=== PATIENT | male | born 1945 | race Caucasian/White ===

== ENCOUNTER 2021-12-30 09:47 | Inpatient (IN) | payer MEDICARE, OTHER ==
[~2021-12-30] VITALS: Ht 182.9 cm; Wt 72.2 kg
[2021-12-30] MEDS ORDERED: DIVA125C2 PO (10:20)
[2021-12-30] MEDS ORDERED: ACET325T9 PO (10:20)
[2021-12-30] MEDS ORDERED: MAGN400O7 PO (10:20)
[2021-12-30] MEDS ORDERED: TRAZ-120 PO (10:20)
[2021-12-30] MEDS ORDERED: MEMA10TA PO (10:20)
[2021-12-30] MEDS ORDERED: QUET200T4 PO (10:20)
[2021-12-30] MEDS ORDERED: DONE10TA7 PO (10:20)
[2021-12-30] MEDS ORDERED: LEVO25TA4 PO (10:20)
[2021-12-30] MEDS ORDERED: ASPI-889 PO (10:20)
[2021-12-30] MEDS ORDERED: METO25TA4 PO (10:20)
--- NOTE | 2021-12-30 10:30 | PHYS DOC ---
Past History Past Medical History: Constipation, Dementia, Hypothyroid Additional Past Medical Histor: Alzheimer's, benign intracranial hypertension, General Adult EDM: Chief Complaint: MEDICAL CLEARANCE HPI: HPI: Patient is a 76-year-old male who presents to the emergency department from the retirement where he was recently admitted for medical clearance for psychiatric treatment. Patient has been admitted to the senior psychiatric unit at this facility. jail reported that the patient has been aggressive and angry towards staff grabbing, hitting, and kicking staff. HPI is limited due to patient's current mental status, he is non-verbal at this time. Review of Systems: Review of Systems: Complete ROS is negative unless otherwise documented in the HPI Allergies: Allergies: Allergies Coded Allergies Type Severity Reaction Last Updated Verified No Known Drug Allergies 12/30/21 No Physical Exam: PE: Constitutional: Well developed, well nourished, no acute distress, non-toxic appearance. [] HENT: Normocephalic, atraumatic, bilateral external ears normal, oropharynx moist, no oral exudates, nose normal. [] Eyes: PERRLA, EOMI, conjunctiva normal, no discharge. [] Neck: Normal range of motion, no tenderness, supple, no stridor. [] Cardiovascular:Heart rate regular rhythm, no murmur [] Lungs & Thorax: Bilateral breath sounds clear to auscultation [] Abdomen: soft, no tenderness, no masses, no pulsatile masses. [] Skin: Warm, dry, no erythema, no rash. [] Back: No tenderness Extremities: No tenderness, no cyanosis, no clubbing, ROM intact, no edema. [] Neurologic: Alert and oriented X 1, normal motor function, normal sensory function, hx of dementia Psychologic: Affect flat, judgement impaired, mood normal EKG: EK-SR rate 87, normal, no STEMI read by Dr. Baptiste[] Radiology/Procedures: Radiology/Procedures: [] Heart Score: C/O Chest Pain: No Course & Med Decision Making: Course & Med Decision Making Pertinent Labs and Imaging studies reviewed. (See chart for details) -year-old male sent to the emergency department for clearance for geriatric psych admission. CBC is unremarkable; CMP revealed a sodium 150, chloride of 113, glucose of 109, alk phos of 122, albumin of 3.3, otherwise unremarkable; UA is unremarkable, urine drug screen is negative for any abnormal findings, patient's alcohol, salicylate, and Tylenol levels are all negative; COVID PCR test is negative. EKG did not reveal any acute findings, the patient's TSH level is pending. At this time patient is medically cleared for psychiatric admission. We will discharge to be admitted. [] Dragon Disclaimer: Dragon Disclaimer: This electronic medical record was generated, in whole or in part, using a voice recognition dictation system. Departure Departure: Impression: Primary Impression: Medical clearance for psychiatric admission Disposition: HOME / SELF CARE / HOMELESS Condition: STABLE Referrals: PCP,UNKNOWN (PCP) Patient Instructions: Medical Screening Exam JOSEFA SAMSON ANIMAL PHYSIOLOGY TEACHER December 30, 2021 10:30
[2021-12-30 10:55] LABS: BASO # 0.1 x10^3/uL (0.0-0.2); BASO % 1 % (0-3); EOS # 0.4 x10^3/uL (0.0-0.7); EOS % 4 % (0-3); HEMATOCRIT 44.5 % (39.0-53.0); HEMOGLOBIN 14.9 g/dL (13.0-17.5); LYMPH # 1.6 x10^3/uL (1.0-4.8); LYMPH % 19 % (24-48); MEAN CORPUSCULAR HEMOGLOBIN 29 pg (25-35); MEAN CORPUSCULAR HGB CONC 34 g/dL (31-37); MEAN CORPUSCULAR VOLUME 85 fL (79-100); MONO # 0.8 x10^3/uL (0.0-1.1); MONO % 10 % (0-9); NEUT # 5.6 x10^3uL (1.8-7.7); NEUT % 67 % (31-73); PLATELET COUNT 245 x10^3/uL (140-400); RED BLOOD COUNT 5.22 x10^6/uL (4.30-5.70); RED CELL DISTRIBUTION WIDTH 14.5 % (11.5-14.5); WHITE BLOOD COUNT 8.5 x10^3/uL (4.0-11.0)
[2021-12-30 11:12] LABS: CALCIUM 8.6 mg/dL (8.5-10.1); CREATININE 1.2 mg/dL (0.7-1.3); GFR 58.6; POTASSIUM 3.6 mmol/L (3.5-5.1)
[2021-12-30 11:18] LABS: ALBUMIN 3.3 g/dL (3.4-5.0); ALBUMIN/GLOBULIN RATIO 0.8 (1.0-1.7); TOTAL BILIRUBIN 0.6 mg/dL (0.2-1.0); TOTAL PROTEIN 7.7 g/dL (6.4-8.2)
[2021-12-30 11:22] LABS: ACETAMIN < 2.0 mcg/mL (10-30); ETHANOL < 10 mg/dL (0-10); SALIC < 2.8 mg/dL (2.8-20.0)
[2021-12-30 12:35] LABS: BARBITURATES NEG (NEG); BENZODIAZEPINES NEG (NEG); CANNABINOIDS NEG (NEG); COCAINE NEG (NEG); METHADONE NEG (NEG); OPIATES NEG (NEG); PHENCYCLIDINE NEG (NEG)
[2021-12-30 12:41] LABS: AMPHETAMINE/METHAMPHETAMINE NEG (NEG)
[2021-12-30 12:51] LABS: COLOR,URINE AMBER
[2021-12-30 12:52] LABS: BACTERIA,URINE 0 /HPF (0-FEW); CLARITY,URINE CLEAR; GLUCOSE,URINE NEG (NEG); NITRITE,URINE NEG (NEG); RBC,URINE OCC /HPF (0-2); SQUAMOUS EPITHELIAL CELL,UR FEW /LPF; UROBILINOGEN,URINE 0.2 mg/dL (0.2 mg/dL); WBC,URINE OCC /HPF (0-4)
[2021-12-30 14:18] VITALS: BP 100/52
[2021-12-30] MEDS ORDERED: METHYL SALICYLATE/MENTHOL TOPICAL OINTMENT 57GM TUBE. TP PRN (14:30)
[2021-12-30] MEDS ORDERED: ACETAMINOPHEN 325 MG TABLET PO PRN (14:30)
[2021-12-30] MEDS ORDERED: MAGNESIUM HYDROXIDE 2,400 MG/30 ML ORAL.SUSP. PO PRN (14:30)
[2021-12-30] MEDS ORDERED: MAG HYDROX/AL HYDROX/SIMETH 30 ML ORAL.SUSP PO PRN (14:30)
[2021-12-30 15:23] LABS: MAGNESIUM 2.5 mg/dL (1.8-2.4)
[2021-12-30 15:26] LABS: VAL ACID 88 mcg/mL (50-100)
[2021-12-30 16:42] VITALS: BP 107/68
--- NOTE | 2021-12-30 19:03 | EKG ---
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
[2021-12-30] MEDS: DONEPEZIL HCL 10 MG TABLET PO SCH (20:16)
[2021-12-30] MEDS: QUEtiapine 100 MG TABLET. PO SCH (20:17)
[2021-12-30] MEDS: MEMANTINE 10 MG TABLET. PO SCH (20:17)
[2021-12-30] MEDS: traZODone 50 MG TABLET. PO SCH (20:17)
[2021-12-30] MEDS: METOPROLOL TART IMMED RELEASE 25 MG TABLET. PO SCH (20:17)
[2021-12-30] MEDS: DIVALPROEX 125 MG CAP.SPRINK PO SCH (20:18)
--- NOTE | 2021-12-30 21:46 | PDOC ---
Exam Note: Biju Note: Please also refer to the separate dictated note~for this date of service dictated separately.~Patient seen individually. Discussed the patient with Nursing staff reviewed the chart.~Reviewed interim history and current functioning. Reviewed vital signs,~Labs/ Radiology~and current medications noted below. Continue current treatment with the changes noted in the dictated addendum note Assessment: Vital Signs/I&O: Vital Signs Date Time Temp Pulse Resp B/P (MAP) Pulse Ox O2 Delivery O2 Flow Rate FiO2 12/30/21 20:17 85 107/68 12/30/21 16:42 98.0 18 92 12/30/21 10:54 Room Air Labs: Laboratory Tests Test 12/30/21 10:20 12/30/21 10:33 12/30/21 12:05 SARS-CoV-2 Antigen (Rapid) Negative (NEGATIVE) White Blood Count 8.5 x10^3/uL (4.0-11.0) Red Blood Count 5.22 x10^6/uL (4.30-5.70) Hemoglobin 14.9 g/dL (13.0-17.5) Hematocrit 44.5 % (39.0-53.0) Mean Corpuscular Volume 85 fL (79-100) Mean Corpuscular Hemoglobin 29 pg (25-35) Mean Corpuscular Hemoglobin Concent 34 g/dL (31-37) Red Cell Distribution Width 14.5 % (11.5-14.5) Platelet Count 245 x10^3/uL (140-400) Neutrophils (%) (Auto) 67 % (31-73) Lymphocytes (%) (Auto) 19 % (24-48) L Monocytes (%) (Auto) 10 % (0-9) H Eosinophils (%) (Auto) 4 % (0-3) H Basophils (%) (Auto) 1 % (0-3) Neutrophils # (Auto) 5.6 x10^3uL (1.8-7.7) Lymphocytes # (Auto) 1.6 x10^3/uL (1.0-4.8) Monocytes # (Auto) 0.8 x10^3/uL (0.0-1.1) Eosinophils # (Auto) 0.4 x10^3/uL (0.0-0.7) Basophils # (Auto) 0.1 x10^3/uL (0.0-0.2) Sodium Level 150 mmol/L (136-145) H Potassium Level 3.6 mmol/L (3.5-5.1) Chloride Level 113 mmol/L (98-107) H Carbon Dioxide Level 25 mmol/L (21-32) Anion Gap 12 (6-14) Blood Urea Nitrogen 24 mg/dL (8-26) Creatinine 1.2 mg/dL (0.7-1.3) Estimated GFR (Cockcroft-Gault) 58.6 BUN/Creatinine Ratio 20 (6-20) Glucose Level 109 mg/dL (70-99) H Calcium Level 8.6 mg/dL (8.5-10.1) Magnesium Level 2.5 mg/dL (1.8-2.4) H Total Bilirubin 0.6 mg/dL (0.2-1.0) Aspartate Amino Transferase (AST) 34 U/L (15-37) Alanine Aminotransferase (ALT) 49 U/L (16-63) Alkaline Phosphatase 122 U/L (46-116) H Total Protein 7.7 g/dL (6.4-8.2) Albumin 3.3 g/dL (3.4-5.0) L Albumin/Globulin Ratio 0.8 (1.0-1.7) L Salicylates Level < 2.8 mg/dL (2.8-20.0) L Salicylate Last Dose Date Unknown Salicylate Last Dose Time Unknown Acetaminophen Level < 2.0 mcg/mL (10-30) L Acetaminophen Last Dose Date Unknown Acetaminophen Last Dose Time Unknown Valproic Acid Level 88 mcg/mL (50-100) Valproic Acid Last Dose Date 12/30/2021 Valproic Acid Last Dose Time 0900 Ethyl Alcohol Level < 10 mg/dL (0-10) Urine Collection Type Clean catch Urine Color [place] Urine Clarity Clear Urine pH 6.0 Urine Specific [place] 1.025 Urine Protein 30 mg/dl (NEG-TRACE) Urine Glucose (UA) Neg mg/dL (NEG) Urine Ketones (Stick) 15 mg/dL (NEG) Urine Blood Neg (NEG) Urine Nitrite Neg (NEG) Urine Bilirubin Small (NEG) Urine Urobilinogen Dipstick 0.2 mg/dL (0.2 mg/dL) Urine Leukocyte Esterase Neg (NEG) Urine RBC Occ /HPF (0-2) Urine WBC Occ /HPF (0-4) Urine Squamous Epithelial Cells Few /LPF Urine Bacteria 0 /HPF (0-FEW) Urine Opiates Screen Neg (NEG) Urine Methadone Screen Neg (NEG) Urine Barbiturates Neg (NEG) Urine Phencyclidine Screen Neg (NEG) Urine Amphetamine/Methamphetamine Neg (NEG) Urine Benzodiazepines Screen Neg (NEG) Urine Cocaine Screen Neg (NEG) Urine Cannabinoids Screen Neg (NEG) Urine Ethyl Alcohol Neg (NEG) Current Medications: Meds: Laboratory Tests Test 12/30/21 10:20 12/30/21 10:33 12/30/21 12:05 SARS-CoV-2 Antigen (Rapid) Negative White Blood Count 8.5 x10^3/uL Red Blood Count 5.22 x10^6/uL Hemoglobin 14.9 g/dL Hematocrit 44.5 % Mean Corpuscular Volume 85 fL Mean Corpuscular Hemoglobin 29 pg Mean Corpuscular Hemoglobin Concent 34 g/dL Red Cell Distribution Width 14.5 % Platelet Count 245 x10^3/uL Neutrophils (%) (Auto) 67 % Lymphocytes (%) (Auto) 19 % Monocytes (%) (Auto) 10 % Eosinophils (%) (Auto) 4 % Basophils (%) (Auto) 1 % Neutrophils # (Auto) 5.6 x10^3uL Lymphocytes # (Auto) 1.6 x10^3/uL Monocytes # (Auto) 0.8 x10^3/uL Eosinophils # (Auto) 0.4 x10^3/uL Basophils # (Auto) 0.1 x10^3/uL Sodium Level 150 mmol/L Potassium Level 3.6 mmol/L Chloride Level 113 mmol/L Carbon Dioxide Level 25 mmol/L Anion Gap 12 Blood Urea Nitrogen 24 mg/dL Creatinine 1.2 mg/dL Estimated GFR (Cockcroft-Gault) 58.6 BUN/Creatinine Ratio 20 Glucose Level 109 mg/dL Calcium Level 8.6 mg/dL Magnesium Level 2.5 mg/dL Total Bilirubin 0.6 mg/dL Aspartate Amino Transf (AST/SGOT) 34 U/L Alanine Aminotransferase (ALT/SGPT) 49 U/L Alkaline Phosphatase 122 U/L Total Protein 7.7 g/dL Albumin 3.3 g/dL Albumin/Globulin Ratio 0.8 Salicylates Level < 2.8 mg/dL Salicylate Last Dose Date Unknown Salicylate Last Dose Time Unknown Acetaminophen Level < 2.0 mcg/mL Acetaminophen Last Dose Date Unknown Acetaminophen Last Dose Time Unknown Valproic Acid (Depakene) Level 88 mcg/mL Valproic Acid Last Dose Date 12/30/2021 Valproic Acid Last Dose Time 0900 Ethyl Alcohol Level < 10 mg/dL Urine Collection Type Clean catch Urine Color [place] Urine Clarity Clear Urine pH 6.0 Urine Specific [place] 1.025 Urine Protein 30 mg/dl Urine Glucose (UA) Neg mg/dL Urine Ketones (Stick) 15 mg/dL Urine Blood Neg Urine Nitrite Neg Urine Bilirubin Small Urine Urobilinogen Dipstick 0.2 mg/dL Urine Leukocyte Esterase Neg Urine RBC Occ /HPF Urine WBC Occ /HPF Urine Squamous Epithelial Cells Few /LPF Urine Bacteria 0 /HPF Urine Opiates Screen Neg Urine Methadone Screen Neg Urine Barbiturates Neg Urine Phencyclidine Screen Neg Urine Amphetamine/Methamphetamine Neg Urine Benzodiazepines Screen Neg Urine Cocaine Screen Neg Urine Cannabinoids Screen Neg Urine Ethyl Alcohol Neg Current Medications Medications (Trade) Dose Ordered Sig/Uche Route PRN Reason Start Time Stop Time Status Last Admin Dose Admin Acetaminophen (Tylenol) 325 mg PRN Q6HRS PRN PO MILD PAIN / TEMP > 100.3'F 12/30/21 14:30 Aspirin (Aspirin Enteric Coated) 81 mg DAILY PO 12/31/21 09:00 Divalproex Sodium (Depakote Sprinkles) 375 mg TID PO 12/30/21 21:00 12/30/21 20:18 Donepezil HCl (Aricept) 10 mg QHS PO 12/30/21 21:00 12/30/21 20:16 Levothyroxine Sodium (Synthroid) 25 mcg DAILY06 PO 12/31/21 06:00 Magnesium Hydroxide (Milk Of Magnesia) 400 mg PRN Q6HRS PRN PO CONSTIPATION 12/30/21 14:30 Memantine (Namenda) 10 mg BID PO 12/30/21 21:00 12/30/21 20:17 Metoprolol Tartrate (Lopressor) 12.5 mg BID PO 12/30/21 21:00 12/30/21 20:17 Trazodone HCl (Desyrel) 25 mg TID PO 12/30/21 21:00 12/30/21 20:17 Quetiapine Fumarate (SEROquel) 200 mg TID PO 12/30/21 21:00 12/30/21 20:17 Multi-Ingredient Ointment (Analgesic [place]) 1 char PRN QID PRN TP MUSCLE PAIN 12/30/21 14:30 Al Hydroxide/Mg Hydroxide (Mylanta Plus Xs) 15 ml PRN AFTMEALHC PRN PO DYSPEPSIA 12/30/21 14:30 Current Medications Medications (Trade) Dose Ordered Sig/Uche Route PRN Reason Start Time Stop Time Status Last Admin Dose Admin Divalproex Sodium (Depakote Sprinkles) 375 mg TID PO 12/30/21 21:00 12/30/21 20:18 Donepezil HCl (Aricept) 10 mg QHS PO 12/30/21 21:00 12/30/21 20:16 Memantine (Namenda) 10 mg BID PO 12/30/21 21:00 12/30/21 20:17 Metoprolol Tartrate (Lopressor) 12.5 mg BID PO 12/30/21 21:00 12/30/21 20:17 Trazodone HCl (Desyrel) 25 mg TID PO 12/30/21 21:00 12/30/21 20:17 Quetiapine Fumarate (SEROquel) 200 mg TID PO 12/30/21 21:00 12/30/21 20:17 I have reviewed the current psychotropics carefully including drug interactions. Risk benefit ratio favors no change other than as noted in my dictated progress note. SPENCER JUNIOR MD December 30, 2021 21:46
[2021-12-31 02:21] LABS: HEMOGLOBIN A1C 5.7 % (4.8-5.6)
[2021-12-31] MEDS: IV DEXTROSE 5% 1,000 ML IV SCH ×2 (03:15→15:41)
[2021-12-31] MEDS ORDERED: LEVOTHYROXINE 25 MCG TABLET. PO SCH (06:00)
[2021-12-31 06:18] VITALS: BP 118/79
[2021-12-31] MEDS: QUEtiapine 100 MG TABLET. PO SCH ×3 (09:41→21:00)
[2021-12-31] MEDS: METOPROLOL TART IMMED RELEASE 25 MG TABLET. PO SCH ×2 (09:41→21:00)
[2021-12-31] MEDS: traZODone 50 MG TABLET. PO SCH ×2 (09:41→12:46)
[2021-12-31] MEDS: MEMANTINE 10 MG TABLET. PO SCH ×2 (09:41→21:00)
[2021-12-31] MEDS: ASPIRIN ENTERIC COATED 81 MG TABLET.DR. PO SCH (09:42)
[2021-12-31] MEDS: DIVALPROEX 125 MG CAP.SPRINK PO SCH ×3 (09:42→21:00)
[2021-12-31 11:30] LABS: CHOLESTEROL/HDL RATIO 4.3
--- NOTE | 2021-12-31 11:54 | HP ---
DATE OF SERVICE: 12/31/2021 ADMIT DATE: 12/30/2021 PSYCHIATRY ADMISSION HISTORY/EVALUATION This is a late entry, date of service 12/30, covers elements not covered in my initial note 12/30. I met with the patient on the evening of 12/30, previously discussed with Deanna Moseley, sales planning coordinator and nursing staff and discussed with LLUVIA Khan on the evening of 12/30. IDENTIFYING DATA: The patient is a 76-year-old male referred to us from [facility] in [place], [place], a fpc, by his primary care physician on account of worsening dementia, vascular type, with delusion, behavioral disturbance, anxiety disorder and impulse control disorder. The patient was physically aggressive with staff at the fpc, refusing medications at times, wandering, attempting to grab female peers, exit seeking with increased agitation and having failed outpatient psychiatric interventions. His behaviors were unmanageable at the facility, resulting in this referral. CHIEF COMPLAINT: "No." HISTORY OF PRESENT ILLNESS: The patient has a history of dementia, probably Alzheimer's, vascular type. He has been increasingly paranoid, agitated with sleep and appetite changes, aggressive, disruptive, as noted above. No active suicidal or homicidal ideation. He has had worsening mood swings. PAST PSYCHIATRIC HISTORY: As above. MEDICAL HISTORY: Hypothyroidism, hypertension, chronic constipation, urinary retention, BPH. CODE STATUS: Full code. ALLERGIES: Negative. ACCU-CHEKS: Not applicable. DIET: Regular. Ambulates ad bassem, though he has had recent falls. FAMILY HISTORY: Noncontributory. SOCIAL HISTORY: No alcohol, drug abuse, physical, sexual, elder abuse history is noted. He is not known to be a perpetrator. REACTION TO HOSPITALIZATION: The patient oblivious of this. REVIEW OF SYSTEMS: No CV, , pulmonary, eye, ENT system symptoms on review. Reliability poor. MENTAL STATUS EXAM: The patient is oriented to himself. Insight, judgment, recent and remote memory, attention, concentration, fund of knowledge poor, consistent with his diagnosis. IMPRESSION: Major neurocognitive disorder, Alzheimer's, vascular with delusion, depression, behavioral disturbance, anxiety disorder, unspecified; impulse control disorder, unspecified. Rest as above. PLAN: Admit to Geropsychiatry Unit at [facility]. I will see the patient daily individually from a psychiatric standpoint. Medical followup, Dr. Epps/Dr. Sandoval. Continue the patient on his current psychotropics, trazodone 25 mg t.i.d., Depakote Sprinkles 375 mg t.i.d. Check CBC, CMP, valproic acid level. Aricept 10 mg at bedtime, Namenda 10 mg b.i.d., Seroquel 200 mg t.i.d. We will adjust psychotropics as clinically indicated. ESTIMATED LENGTH OF STAY: 10-12 days. DISPOSITION PLANS: Back to fpc when stable. Valproic acid level is 88 in the Emergency Department. The patient is quite sedated. MARVIN DR: Gail TID: [id number]
[2021-12-31 15:00] VITALS: BP 107/72
[2021-12-31] MEDS: DONEPEZIL HCL 10 MG TABLET PO SCH (21:00)
--- NOTE | 2022-01-01 02:38 | CONS ---
DATE OF CONSULTATION: 12/31/2021 REASON FOR CONSULTATION: Medical management. HISTORY OF PRESENT ILLNESS: The patient is a 71-year-old male patient who apparently was a resident at [facility]. From there, he was in [facility] where he was seen and admitted on account of being paranoid, suspicious, agitated, angry with a pressured speech, verbally abusive, hallucinating, delusional, yelling about shooting, conspiracies and another violent-type ideologies, all this in a background of schizophrenia and posttraumatic stress disorder. On questioning him, he denied any complaint. PAST MEDICAL HISTORY: Significant for hyperlipidemia, hypertension, gastroesophageal reflux disease, hyponatremia, type 2 diabetes, chronic back pain. PAST PSYCHIATRIC HISTORY: Significant for schizophrenia, posttraumatic stress disorder, alcohol dependence and insomnia. ALLERGIES: HE IS ALLERGIC TO WELLBUTRIN AND SIMVASTATIN. MEDICATIONS: He is currently on the following medications. He is on Lovenox 40 mg subcutaneous daily, pravastatin sodium 40 mg at bedtime, atenolol 50 mg once a day, amlodipine besylate 10 mg at bedtime, Tylenol 650 mg every 4 hours as needed, sertraline 100 mg daily, trazodone 25 mg every 8 hours, trazodone 25 mg at bedtime, olanzapine 2.5 mg at bedtime, quetiapine fumarate 50 mg twice a day, chlorhexidine gluconate 15 mL twice a day, cyanocobalamin 1000 mcg once a day, melatonin 10 mg at bedtime. FAMILY HISTORY: Noncontributory. SOCIAL HISTORY: He is a resident at [facility] and [facility]. He is , has no children of his own. REVIEW OF SYSTEMS: As per history of present illness. PHYSICAL EXAMINATION: GENERAL: When I examined him, he looked well and was clearly in no apparent respiratory distress. No pallor, jaundice, cyanosis or thyromegaly. No jugular venous distention. No lower limb edema. VITAL SIGNS: His heart rate was 94, blood pressure was 129/89, temperature 97.8, respiratory rate 20 and oxygen saturation was 91% on room air. HEAD, EYES, EARS, NOSE, AND THROAT: Showed he is normocephalic, atraumatic. NECK: Supple. HEART: Normal first and second heart sounds. No gallop, rub or murmur. CHEST: Clear to auscultation. No crepitation or rhonchi. ABDOMEN: Distended, soft, nontender. NEUROLOGIC: He was grossly intact. LABORATORY DATA: Showed a white cell count of 8.7, hemoglobin 15, hematocrit 45, MCV 93 and platelet count of 216,000 with normal manual differential. His chemistry showed serum sodium 142, potassium 4.4, chloride 105, bicarbonate 29, anion gap of 8, BUN 20, creatinine 1.1. Estimated GFR was 65 mL per minute. His glucose 102, calcium was 8.7, magnesium 2. Total bilirubin, AST, ALT, alkaline phosphatase were normal. Total protein 6.7, albumin 3.6. His D-dimer was slightly elevated at 1.05 mg per liter. His urinalysis essentially unremarkable. ASSESSMENT AND PLAN: In summary, this is a 76-year-old male patient who was admitted to [facility] on account of being paranoid, suspicious, agitated, angry with pressured speech. He was verbally abusive, hallucinating, delusional, yelling about shooting, conspiracy and an otherwise violent-type ideologies, all this in a background of schizophrenia and posttraumatic stress disorder. Of note, the patient has not so far demonstrated any of these behaviors in this facility. Medically, he has multiple medical problems including hypertension, hyperlipidemia, hyponatremia, type 2 diabetes mellitus, gastroesophageal reflux disease, chronic back pain. All in all, the patient seems to be medically stable. All his vital signs are stable. I reviewed all his lab works and they are all within acceptable range. I will continue with all his current medication; however, I do not think he needs Lovenox. I will discontinue that. He is ambulatory. Thank you, Dr. Latif, for allowing me to participate in the care of this patient. ODALYS/SCOTT RENNER: Marta TID: [id number]
[2022-01-01] MEDS: IV DEXTROSE 5% 1,000 ML IV SCH ×4 (03:15→23:58)
--- NOTE | 2022-01-01 03:53 | CONS ---
DATE OF CONSULTATION: 12/31/2021 REASON FOR CONSULTATION: Medical management. HISTORY OF PRESENT ILLNESS: The patient is a 76-year-old male patient, a resident at [facility] in [place], who was admitted through the Emergency Room of [facility] [place] to [facility] Unit on account of being physically aggressive with staff, refusing medication at times, wandering, attempted to grab a female peer, exit seeking, and increasingly agitated, all this in a background of major neurocognitive disorder, vascular, Alzheimer with delusion, depression, behavioral disturbances, anxiety disorder and unspecified impulse control disorder. The patient was heavily sedated and it was difficult to get any information from him. PAST MEDICAL HISTORY: Significant for hypertension, hypothyroidism, benign prostatic hypertrophy with urinary retention, chronic constipation. PAST SURGICAL HISTORY: Significant for Alzheimer disease as well as insomnia. FAMILY HISTORY: Unobtainable. SOCIAL HISTORY: He is apparently residing at [facility] in [place], no further information available in the records. ALLERGIES: He apparently is allergic to PENICILLIN, CODEINE, and SULFADIAZINE. MEDICATIONS: He is currently on the following medications: He is on Aricept 10 mg at bedtime, metoprolol tartrate 12.5 mg twice a day, aspirin 81 mg once a day, acetaminophen 650 mg every 6 hours, divalproex 375 mg 3 times a day, trazodone 25 mg 3 times a day, Seroquel 200 mg 3 times a day, Namenda 10 mg twice a day, and magnesium hydroxide 30 mL p.o. daily p.r.n. for constipation. He is also on levothyroxine 25 mcg once a day. REVIEW OF SYSTEMS: Unobtainable. PHYSICAL EXAMINATION: GENERAL: When I examined him, the patient was sitting slightly propped up in bed, in no apparent respiratory distress. There was no pallor, jaundice, cyanosis. No lymphadenopathy, no thyromegaly, no jugular venous distention. No lower limb edema. VITAL SIGNS: His heart rate was 94, blood pressure was 118/79, temperature was 98.2, respiratory rate 22, and oxygen saturation was 94% on room air. HEAD, EYES, EARS, NOSE, AND THROAT: Normocephalic, atraumatic. NECK: Supple. HEART: Showed normal first and second heart sounds. No gallop, rub or murmur. CHEST: Clear to auscultation, no crepitation or rhonchi. ABDOMEN: Distended, soft, nontender. NEUROLOGIC: He was lethargic, but arousable. He does not really open his eyes, but does respond to painful stimuli. There is no evidence of any neck rigidity, and Kernig sign was negative. LABORATORY DATA: On arrival showed a white cell count of 8.5, hemoglobin 15, hematocrit 45, MCV 85 and platelet count 245,000, with a manual differential showed 67% polymorphs, 19% lymphocytes, 10% monocytes. His chemistry showed his sodium to be high at 150, potassium 3.6, chloride 113, bicarbonate 25, anion gap of 12, BUN 24, creatinine 1.2. Estimated GFR was 58 mL per minute. His glucose 109, calcium was 8.6. Total bilirubin, AST, ALT were normal. Alkaline phosphatase slightly elevated. His total protein 7.7, albumin was 3.3. His TSH was 2.365. His hemoglobin A1c was 5.7, magnesium 2.5. Serum iron, TIBC and iron saturation are all consistent with replete iron stores. His serum triglycerides was 118, total cholesterol 178, LDL was 113, VLDL was 24, HDL was 41 and the ratio was 4.3. His total T4 and total T3 are both low. His urinalysis essentially unremarkable. Toxic screen was negative, and his coronavirus by rapid antigen testing and by PCR both were negative. ASSESSMENT AND PLAN: In summary, this is a 76-year-old male patient, a resident at [facility] in [place], who was admitted on account of being physically aggressive towards staff, refusing medication at times, wandering, attempted to grab a female peer, exit seeking with increased agitation, all this in a background of major neurocognitive disorder. Medically, the patient has multiple medical problems including hypertension, hypothyroidism, benign prostatic hypertrophy and chronic constipation as well as urinary retention. All in all, the patient seems to be medically stable. He has marked hyponatremia and marked water deficit as well as hypothyroidism. His total T4 and total T3 were normal. He probably needs need to increase his Synthroid to 50 mcg, start him also on D5W while he continues to be lethargic to treat his hyponatremia. Thank you, Dr. Latif, for allowing me to participate in the care of this patient. ODALYS/DEYVI DR: ODALYS/nts TID: [id number]
[2022-01-01] MEDS: LEVOTHYROXINE 50 MCG TABLET PO SCH ×2 (06:00→07:44)
[2022-01-01 06:09] VITALS: BP 103/66
[2022-01-01] MEDS: MEMANTINE 10 MG TABLET. PO SCH ×2 (07:44→08:11)
[2022-01-01] MEDS: ASPIRIN ENTERIC COATED 81 MG TABLET.DR. PO SCH ×2 (07:44→08:11)
[2022-01-01] MEDS: DIVALPROEX 125 MG CAP.SPRINK PO SCH ×4 (07:46→20:57)
[2022-01-01] MEDS: METOPROLOL TART IMMED RELEASE 25 MG TABLET. PO SCH ×3 (07:46→20:58)
[2022-01-01 08:28] LABS: CALCIUM 8.2 mg/dL (8.5-10.1); CREATININE 1.1 mg/dL (0.7-1.3); GFR 64.7; POTASSIUM 3.7 mmol/L (3.5-5.1)
[2022-01-01] MEDS: QUEtiapine 100 MG TABLET. PO SCH ×3 (09:00→20:58)
[2022-01-01 16:03] VITALS: BP 102/69
--- NOTE | 2022-01-01 21:55 | PDOC ---
Exam Note: Biju Note: Please also refer to the separate dictated note~for this date of service dictated separately.~Patient seen individually. Discussed the patient with Nursing staff reviewed the chart.~Reviewed interim history and current functioning. Reviewed vital signs,~Labs/ Radiology~and current medications noted below. Continue current treatment with the changes noted in the dictated addendum note Assessment: Vital Signs/I&O: Vital Signs Date Time Temp Pulse Resp B/P (MAP) Pulse Ox O2 Delivery O2 Flow Rate FiO2 01/01/22 16:03 97.4 71 18 102/69 (80) 98 Room Air I & O 12/31/21 12/31/21 01/01/22 15:00 23:00 07:00 Intake Total 240 ml 0 ml 1000 ml Balance 240 ml 0 ml 1000 ml Labs: Laboratory Tests Test 01/01/22 08:00 D-Dimer (Nafisa) 5.49 mg/L (0.00-0.50) H Sodium Level 147 mmol/L (136-145) H Potassium Level 3.7 mmol/L (3.5-5.1) Chloride Level 111 mmol/L (98-107) H Carbon Dioxide Level 29 mmol/L (21-32) Anion Gap 7 (6-14) Blood Urea Nitrogen 19 mg/dL (8-26) Creatinine 1.1 mg/dL (0.7-1.3) Estimated GFR (Cockcroft-Gault) 64.7 Glucose Level 109 mg/dL (70-99) H Calcium Level 8.2 mg/dL (8.5-10.1) L Current Medications: Meds: Laboratory Tests Test 01/01/22 08:00 D-Dimer (Nafisa) 5.49 mg/L Sodium Level 147 mmol/L Potassium Level 3.7 mmol/L Chloride Level 111 mmol/L Carbon Dioxide Level 29 mmol/L Anion Gap 7 Blood Urea Nitrogen 19 mg/dL Creatinine 1.1 mg/dL Estimated GFR (Cockcroft-Gault) 64.7 Glucose Level 109 mg/dL Calcium Level 8.2 mg/dL Current Medications Medications (Trade) Dose Ordered Sig/Uche Route PRN Reason Start Time Stop Time Status Last Admin Dose Admin Acetaminophen (Tylenol) 325 mg PRN Q6HRS PRN PO MILD PAIN / TEMP > 100.3'F 12/30/21 14:30 Aspirin (Aspirin Enteric Coated) 81 mg DAILY PO 5/7/22 09:00 12/31/21 09:42 Divalproex Sodium (Depakote Sprinkles) 375 mg TID PO 12/30/21 21:00 12/31/21 12:46 Donepezil HCl (Aricept) 10 mg QHS PO 12/30/21 21:00 01/01/22 20:43 DC 12/30/21 20:16 Levothyroxine Sodium (Synthroid) 25 mcg DAILY06 PO 12/31/21 06:00 12/31/21 11:54 DC 12/31/21 05:46 Magnesium Hydroxide (Milk Of Magnesia) 400 mg PRN Q6HRS PRN PO CONSTIPATION 12/30/21 14:30 12/31/21 12:46 Memantine (Namenda) 10 mg BID PO 12/30/21 21:00 01/01/22 20:43 DC 12/31/21 09:41 Metoprolol Tartrate (Lopressor) 12.5 mg BID PO 12/30/21 21:00 12/31/21 09:41 Trazodone HCl (Desyrel) 25 mg TID PO 12/30/21 21:00 12/31/21 17:59 DC 12/31/21 09:41 Quetiapine Fumarate (SEROquel) 200 mg TID PO 12/30/21 21:00 12/31/21 17:59 DC 12/31/21 09:41 Multi-Ingredient Ointment (Analgesic [place]) 1 char PRN QID PRN TP MUSCLE PAIN 12/30/21 14:30 Al Hydroxide/Mg Hydroxide (Mylanta Plus Xs) 15 ml PRN AFTMEALHC PRN PO DYSPEPSIA 12/30/21 14:30 Dextrose 1,000 ml @ 100 mls/hr Q10H IV 12/31/21 11:45 01/01/22 03:15 Levothyroxine Sodium (Synthroid) 50 mcg DAILY06 PO 01/01/22 06:00 Quetiapine Fumarate (SEROquel) 100 mg TID PO 12/31/21 21:00 Olanzapine (ZyPREXA ZYDIS) 2.5 mg PRN Q2HR PRN PO ANXIETY / AGITATION 12/31/21 18:00 I have reviewed the current psychotropics carefully including drug interactions. Risk benefit ratio favors no change other than as noted in my dictated progress note. 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
[2022-01-02] MEDS: LEVOTHYROXINE 50 MCG TABLET PO SCH (05:08)
[2022-01-02 06:04] VITALS: BP 102/68
[2022-01-02 07:24] LABS: CALCIUM 8.2 mg/dL (8.5-10.1); GFR 72.3; POTASSIUM 3.4 mmol/L (3.5-5.1)
[2022-01-02] MEDS: DIVALPROEX 125 MG CAP.SPRINK PO SCH (08:31)
[2022-01-02] MEDS: METOPROLOL TART IMMED RELEASE 25 MG TABLET. PO SCH ×3 (08:31→21:00)
[2022-01-02] MEDS: ASPIRIN ENTERIC COATED 81 MG TABLET.DR. PO SCH ×2 (08:31→09:15)
[2022-01-02] MEDS: QUEtiapine 100 MG TABLET. PO SCH (08:32)
--- NOTE | 2022-01-02 08:34 | PDOC ---
Exam Note: Biju Note: This note is a late entry for 12/31/2021 covers elements not covered in my initial note. Subjective: The patient was seen individually on 12/31/2021, discussed and reviewed the chart with Carolina TEIXEIRA. The patient slept 7-1/4 hours previous night. He remains confused. Apparently he got significant amount of Haldol at the [facility] prior to the transport here. He continues to keep his eyes closed. Appetite is very poor. He has been picking at staff, refusing to eat. Sodium is 150 and he was started on IV D5W. BMP will be repeated in the morning. Later in the day he was grabbing, hitting and kneeing with staff members. He takes his medications in apple sauce. He is quite dehydrated, was started on IV fluids, very difficult to keep the line in and he has pulled it out and staff are attempting to put it back in this evening. Review of Systems: Ambulation impaired. No CV, , pulmonary, eye, ENT system symptoms on review. Mental Status Exam: Patient is oriented to himself. Insight and judgment, recent and remote memory, attention and concentration, fund of knowledge is poor consistent with his diagnoses. Laboratory Data: Reviewed. Impression: Major neurocognitive disorder, Alzheimer, vascular with delusion, depression, behavioral disturbance. Anxiety disorder unspecified. Impulse control disorder unspecified. Dehydration and oversedation. Rest unchanged from admission note. Plan: Continue current psychotropics unchanged. Reviewed drug interactions, risk-benefit ratio. We will defer medical management to Dr. Epps. The patient is being restarted on IV fluids. Stop the trazodone 25 mg t.i.d. to reduce sedation and Seroquel from 400 mg t.i.d. down to 100 mg t.i.d. We will add Zyprexa 2.5 mg q.2h. p.r.n. psychosis and agitation, max 15 mg in 25 hours. Consider low dose Depakote as a mood stabilizer. Adjust further as clinically indicated. Assessment: Vital Signs/I&O: Vital Signs Date Time Temp Pulse Resp B/P (MAP) Pulse Ox O2 Delivery O2 Flow Rate FiO2 01/02/22 06:04 97.0 68 18 102/68 (79) 92 Room Air I & O 01/01/22 01/01/22 01/02/22 15:00 23:00 07:00 Intake Total 120 ml 1520 ml 1000 ml Balance 120 ml 1520 ml 1000 ml Labs: Laboratory Tests Test 01/02/22 07:03 Sodium Level 137 mmol/L (136-145) Potassium Level 3.4 mmol/L (3.5-5.1) L Chloride Level 103 mmol/L (98-107) Carbon Dioxide Level 27 mmol/L (21-32) Anion Gap 7 (6-14) Blood Urea Nitrogen 11 mg/dL (8-26) Creatinine 1.0 mg/dL (0.7-1.3) Estimated GFR (Cockcroft-Gault) 72.3 Glucose Level 108 mg/dL (70-99) H Calcium Level 8.2 mg/dL (8.5-10.1) L Current Medications: I have reviewed the current psychotropics carefully including drug interactions. Risk benefit ratio favors no change other than as noted in my dictated progress note. Diagnosis: Problems: (1) Dehydration (2) Impulse control disorder, unspecified (3) Anxiety disorder, unspecified (4) Dementia, vascular, with depression (5) Dementia, vascular, with delusions (6) Dementia in Alzheimer's disease with depression (7) Dementia in Alzheimer's disease with delusions (8) Mixed Alzheimer's and vascular dementia with behavior disturbances (9) Major neurocognitive disorder SPENCER JUNIOR MD January 02, 2022 08:34
--- NOTE | 2022-01-02 09:03 | PDOC ---
Exam Note: Biju Note: This note is a late entry for 01/01/2022 covers elements not covered in my initial note. Subjective: The patient was seen individually on 01/01/2022, discussed and reviewed the chart with Raquel TEIXEIRA. The patient slept 7 hours previous night. He had marked mood lability, was quite withdrawn due to his general mental status and psychotropic medication adjustment, other times he is beating up nursing staff when they assist him with ADLs and with his IV fluids. He did not get any h.s. meds last night, none today. He remains on D5W at 100 mL. He grabbed the arm of a nursing staff today and twisted it behind the staffs back. Repeat labs in the morning. He refused medications and then they had to be syringed at times. Review of Systems: Ambulation impaired, lying in bed. No CV, , pulmonary, eye, ENT system symptoms on review. Mental Status Exam: Patient is oriented to himself. He is not very verbally interactive. Insight and judgment, recent and remote memory, attention and concentration, fund of knowledge is poor consistent with his diagnoses. Laboratory Data: Reviewed. Impression: Major neurocognitive disorder, Alzheimer, vascular with delusion, depression, behavioral disturbance. Anxiety disorder unspecified. Impulse control disorder unspecified. Dehydration and oversedation. Plan: Continue current psychotropics unchanged. Reviewed drug interactions, risk-benefit ratio. Given the patients level of dementia, there will be little benefit from Aricept and Namenda and we will stop it. Maintain rest of the psychotropics unchanged Depakote, Seroquel and Zyprexa p.r.n. We will adjust further as clinically indicated. Assessment: Vital Signs/I&O: Vital Signs Date Time Temp Pulse Resp B/P (MAP) Pulse Ox O2 Delivery O2 Flow Rate FiO2 01/02/22 08:31 68 102/68 01/02/22 06:04 97.0 18 92 Room Air I & O 01/01/22 01/01/22 01/02/22 15:00 23:00 07:00 Intake Total 120 ml 1520 ml 1000 ml Balance 120 ml 1520 ml 1000 ml Labs: Laboratory Tests Test 01/02/22 07:03 Sodium Level 137 mmol/L (136-145) Potassium Level 3.4 mmol/L (3.5-5.1) L Chloride Level 103 mmol/L (98-107) Carbon Dioxide Level 27 mmol/L (21-32) Anion Gap 7 (6-14) Blood Urea Nitrogen 11 mg/dL (8-26) Creatinine 1.0 mg/dL (0.7-1.3) Estimated GFR (Cockcroft-Gault) 72.3 Glucose Level 108 mg/dL (70-99) H Calcium Level 8.2 mg/dL (8.5-10.1) L Current Medications: I have reviewed the current psychotropics carefully including drug interactions. Risk benefit ratio favors no change other than as noted in my dictated progress note. Diagnosis: Problems: (1) Impulse control disorder, unspecified (2) Anxiety disorder, unspecified (3) Dementia, vascular, with depression (4) Dementia, vascular, with delusions (5) Dementia in Alzheimer's disease with depression (6) Dementia in Alzheimer's disease with delusions (7) Mixed Alzheimer's and vascular dementia with behavior disturbances (8) Major neurocognitive disorder (9) Dehydration SPENCER JUNIOR MD January 02, 2022 09:03
[2022-01-02 16:12] VITALS: BP 137/75
--- NOTE | 2022-01-02 21:32 | PDOC ---
Exam Note: Biju Note: Please also refer to the separate dictated note~for this date of service dictated separately.~Patient seen individually. Discussed the patient with Nursing staff reviewed the chart.~Reviewed interim history and current functioning. Reviewed vital signs,~Labs/ Radiology~and current medications noted below. Continue current treatment with the changes noted in the dictated addendum note Assessment: Vital Signs/I&O: Vital Signs Date Time Temp Pulse Resp B/P (MAP) Pulse Ox O2 Delivery O2 Flow Rate FiO2 01/02/22 16:12 98.1 95 18 137/75 (95) 93 Room Air I & O 01/01/22 01/01/22 01/02/22 15:00 23:00 07:00 Intake Total 120 ml 1520 ml 1000 ml Balance 120 ml 1520 ml 1000 ml Labs: Laboratory Tests Test 01/02/22 07:03 01/02/22 09:00 01/02/22 09:38 Sodium Level 137 mmol/L (136-145) Potassium Level 3.4 mmol/L (3.5-5.1) L Chloride Level 103 mmol/L (98-107) Carbon Dioxide Level 27 mmol/L (21-32) Anion Gap 7 (6-14) Blood Urea Nitrogen 11 mg/dL (8-26) Creatinine 1.0 mg/dL (0.7-1.3) Estimated GFR (Cockcroft-Gault) 72.3 Glucose Level 108 mg/dL (70-99) H Calcium Level 8.2 mg/dL (8.5-10.1) L POC SARS CoV-2 Antigen Positive (NEGATIVE) A SARS-CoV-2 (PCR) Not detected (NOT DETECTD) Current Medications: Meds: Laboratory Tests Test 01/02/22 07:03 01/02/22 09:00 01/02/22 09:38 Sodium Level 137 mmol/L Potassium Level 3.4 mmol/L Chloride Level 103 mmol/L Carbon Dioxide Level 27 mmol/L Anion Gap 7 Blood Urea Nitrogen 11 mg/dL Creatinine 1.0 mg/dL Estimated GFR (Cockcroft-Gault) 72.3 Glucose Level 108 mg/dL Calcium Level 8.2 mg/dL POC SARS CoV-2 Antigen Positive Coronavirus (COVID-19)(PCR) Not detected Current Medications Medications (Trade) Dose Ordered Sig/Uche Route PRN Reason Start Time Stop Time Status Last Admin Dose Admin Acetaminophen (Tylenol) 325 mg PRN Q6HRS PRN PO MILD PAIN / TEMP > 100.3'F 12/30/21 14:30 Aspirin (Aspirin Enteric Coated) 81 mg DAILY PO 12/31/21 09:00 12/31/21 09:42 Divalproex Sodium (Depakote Sprinkles) 375 mg TID PO 12/30/21 21:00 01/02/22 13:09 DC 01/02/22 08:31 Donepezil HCl (Aricept) 10 mg QHS PO 12/30/21 21:00 01/01/22 20:43 DC 12/30/21 20:16 Levothyroxine Sodium (Synthroid) 25 mcg DAILY06 PO 12/31/21 06:00 12/31/21 11:54 DC 12/31/21 05:46 Magnesium Hydroxide (Milk Of Magnesia) 400 mg PRN Q6HRS PRN PO CONSTIPATION 12/30/21 14:30 12/31/21 12:46 Memantine (Namenda) 10 mg BID PO 12/30/21 21:00 01/01/22 20:43 DC 12/31/21 09:41 Metoprolol Tartrate (Lopressor) 12.5 mg BID PO 12/30/21 21:00 12/31/21 09:41 Trazodone HCl (Desyrel) 25 mg TID PO 12/30/21 21:00 12/31/21 17:59 DC 12/31/21 09:41 Quetiapine Fumarate (SEROquel) 200 mg TID PO 12/30/21 21:00 12/31/21 17:59 DC 12/31/21 09:41 Multi-Ingredient Ointment (Analgesic [place]) 1 char PRN QID PRN TP MUSCLE PAIN 12/30/21 14:30 Al Hydroxide/Mg Hydroxide (Mylanta Plus Xs) 15 ml PRN AFTMEALHC PRN PO DYSPEPSIA 12/30/21 14:30 Dextrose 1,000 ml @ 100 mls/hr Q10H IV 12/31/21 11:45 01/02/22 09:41 DC 01/01/22 23:58 Levothyroxine Sodium (Synthroid) 50 mcg DAILY06 PO 01/01/22 06:00 Quetiapine Fumarate (SEROquel) 100 mg TID PO 12/31/21 21:00 01/02/22 13:09 DC 01/02/22 08:32 Olanzapine (ZyPREXA ZYDIS) 2.5 mg PRN Q2HR PRN PO ANXIETY / AGITATION 12/31/21 18:00 01/02/22 15:14 I have reviewed the current psychotropics carefully including drug interactions. Risk benefit ratio favors no change other than as noted in my dictated progress note. Diagnosis: Problems: (1) Impulse control disorder, unspecified (2) Anxiety disorder, unspecified (3) Dementia, vascular, with depression (4) Dementia, vascular, with delusions (5) Dementia in Alzheimer's disease with depression (6) Dementia in Alzheimer's disease with delusions (7) Mixed Alzheimer's and vascular dementia with behavior disturbances (8) Major neurocognitive disorder SPENCER JUNIOR MD January 02, 2022 21:32
[2022-01-03 06:18] VITALS: BP 111/74
[2022-01-03] MEDS: LEVOTHYROXINE 50 MCG TABLET PO SCH ×2 (07:20→07:56)
--- NOTE | 2022-01-03 08:45 | PDOC ---
Exam Note: Biju Note: This note is a late entry for 01/02/2022 covers elements not covered in my initial note. Subjective: The patient was reviewed at treatment team meeting individually in the morning on 01/02/2022 with Karin Terrell, Deanna Stone (social media community manager), Hilda, activity therapy, and Bill TEIXEIRA, discussed and reviewed the chart. The patient slept 5-1/2 hours previous night. His oral intake is poor. He has been lethargic. All psychotropics have been held and we will in fact go ahead and stop the Aricept, Namenda, Seroquel and Depakote and keep Zyprexa p.r.n. Previ ous night he was in bed reaching out for things that were not there. Today he has been more awake, walking with physical therapy staff. Sodium improved from 150 to 137. He did void. He refused mediations, later took it in pudding. Oral intake is poor. IV has been stopped. He is Covid positive on the antigen test and PCR is awaited. He remains disorganized. He did have a fall during the day. Staff had called me and now he is back on one-on-one status after the fall at 1.30 p.m. He did receive Zyprexa p.r.n. in the evening. Review of Systems: No CV, , pulmonary, eye, ENT system symptoms on review. Reliability poor. Mental Status Exam: Patient is oriented to himself. Insight and judgment, recent and remote memory, attention and concentration, fund of knowledge is poor consistent with his diagnoses. Laboratory Data: Reviewed. Impression: Major neurocognitive disorder, Alzheimer, vascular with delusion, depression, behavioral disturbance. Anxiety disorder unspecified. Impulse control disorder unspecified. Plan: We will avoid all psychotropics for now, stabilize him medically and then decide. Assessment: Vital Signs/I&O: Vital Signs Date Time Temp Pulse Resp B/P (MAP) Pulse Ox O2 Delivery O2 Flow Rate FiO2 01/03/22 06:18 97.2 60 16 111/74 (86) 92 Room Air I & O 01/02/22 01/02/22 01/03/22 15:00 23:00 07:00 Intake Total 0 ml 0 ml Balance 0 ml 0 ml Labs: Laboratory Tests Test 01/02/22 09:00 01/02/22 09:38 POC SARS CoV-2 Antigen Positive (NEGATIVE) A SARS-CoV-2 (PCR) Not detected (NOT DETECTD) Current Medications: I have reviewed the current psychotropics carefully including drug interactions. Risk benefit ratio favors no change other than as noted in my dictated progress note. Diagnosis: Problems: (1) Impulse control disorder, unspecified (2) Anxiety disorder, unspecified (3) Dementia, vascular, with depression (4) Dementia, vascular, with delusions (5) Dementia in Alzheimer's disease with depression (6) Dementia in Alzheimer's disease with delusions (7) Mixed Alzheimer's and vascular dementia with behavior disturbances (8) Major neurocognitive disorder SPENCER JUNIOR MD January 03, 2022 08:45
[2022-01-03] MEDS: METOPROLOL TART IMMED RELEASE 25 MG TABLET. PO SCH ×2 (09:55→21:01)
[2022-01-03] MEDS: ASPIRIN ENTERIC COATED 81 MG TABLET.DR. PO SCH (09:55)
--- NOTE | 2022-01-03 21:35 | PDOC ---
Exam Note: Biju Note: Please also refer to the separate dictated note~for this date of service dictated separately.~Patient seen individually. Discussed the patient with Nursing staff reviewed the chart.~Reviewed interim history and current functioning. Reviewed vital signs,~Labs/ Radiology~and current medications noted below. Continue current treatment with the changes noted in the dictated addendum note Assessment: Vital Signs/I&O: Vital Signs Date Time Temp Pulse Resp B/P (MAP) Pulse Ox O2 Delivery O2 Flow Rate FiO2 01/03/22 21:01 60 111/74 01/03/22 06:18 97.2 16 92 Room Air I & O 01/02/22 01/02/22 01/03/22 15:00 23:00 07:00 Intake Total 0 ml 0 ml Balance 0 ml 0 ml Current Medications: Meds: Current Medications Medications (Trade) Dose Ordered Sig/Uche Route PRN Reason Start Time Stop Time Status Last Admin Dose Admin Acetaminophen (Tylenol) 325 mg PRN Q6HRS PRN PO MILD PAIN / TEMP > 100.3'F 12/30/21 14:30 Aspirin (Aspirin Enteric Coated) 81 mg DAILY PO 12/31/21 09:00 12/31/21 09:42 Divalproex Sodium (Depakote Sprinkles) 375 mg TID PO 12/30/21 21:00 01/02/22 13:09 DC 01/02/22 08:31 Donepezil HCl (Aricept) 10 mg QHS PO 12/30/21 21:00 01/01/22 20:43 DC 12/30/21 20:16 Levothyroxine Sodium (Synthroid) 25 mcg DAILY06 PO 12/31/21 06:00 12/31/21 11:54 DC 12/31/21 05:46 Magnesium Hydroxide (Milk Of Magnesia) 400 mg PRN Q6HRS PRN PO CONSTIPATION 12/30/21 14:30 12/31/21 12:46 Memantine (Namenda) 10 mg BID PO 12/30/21 21:00 01/01/22 20:43 DC 12/31/21 09:41 Metoprolol Tartrate (Lopressor) 12.5 mg BID PO 12/30/21 21:00 01/03/22 21:01 Trazodone HCl (Desyrel) 25 mg TID PO 12/30/21 21:00 12/31/21 17:59 DC 12/31/21 09:41 Quetiapine Fumarate (SEROquel) 200 mg TID PO 12/30/21 21:00 12/31/21 17:59 DC 12/31/21 09:41 Multi-Ingredient Ointment (Analgesic [place]) 1 char PRN QID PRN TP MUSCLE PAIN 12/30/21 14:30 Al Hydroxide/Mg Hydroxide (Mylanta Plus Xs) 15 ml PRN AFTMEALHC PRN PO DYSPEPSIA 12/30/21 14:30 Dextrose 1,000 ml @ 100 mls/hr Q10H IV 12/31/21 11:45 01/02/22 09:41 DC 01/01/22 23:58 Levothyroxine Sodium (Synthroid) 50 mcg DAILY06 PO 01/01/22 06:00 Quetiapine Fumarate (SEROquel) 100 mg TID PO 12/31/21 21:00 01/02/22 13:09 DC 01/02/22 08:32 Olanzapine (ZyPREXA ZYDIS) 2.5 mg PRN Q2HR PRN PO ANXIETY / AGITATION 12/31/21 18:00 01/03/22 07:19 I have reviewed the current psychotropics carefully including drug interactions. Risk benefit ratio favors no change other than as noted in my dictated progress note. 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
[2022-01-04 06:15] VITALS: BP 98/63
[2022-01-04] MEDS: LEVOTHYROXINE 50 MCG TABLET PO SCH (06:26)
[2022-01-04 06:38] LABS: BASO # 0.1 x10^3/uL (0.0-0.2); BASO % 1 % (0-3); EOS # 0.2 x10^3/uL (0.0-0.7); EOS % 3 % (0-3); HEMATOCRIT 43.2 % (39.0-53.0); HEMOGLOBIN 14.6 g/dL (13.0-17.5); LYMPH # 1.8 x10^3/uL (1.0-4.8); LYMPH % 21 % (24-48); MEAN CORPUSCULAR HEMOGLOBIN 28 pg (25-35); MEAN CORPUSCULAR HGB CONC 34 g/dL (31-37); MEAN CORPUSCULAR VOLUME 84 fL (79-100); MONO # 1.2 x10^3/uL (0.0-1.1); MONO % 14 % (0-9); NEUT # 5.3 x10^3uL (1.8-7.7); NEUT % 62 % (31-73); PLATELET COUNT 200 x10^3/uL (140-400); RED BLOOD COUNT 5.17 x10^6/uL (4.30-5.70); RED CELL DISTRIBUTION WIDTH 14.3 % (11.5-14.5); WHITE BLOOD COUNT 8.6 x10^3/uL (4.0-11.0)
[2022-01-04 06:44] LABS: ALBUMIN 3.1 g/dL (3.4-5.0); ALBUMIN/GLOBULIN RATIO 0.8 (1.0-1.7); CALCIUM 8.8 mg/dL (8.5-10.1); CREATININE 1.2 mg/dL (0.7-1.3); GFR 58.6; POTASSIUM 3.1 mmol/L (3.5-5.1); TOTAL BILIRUBIN 0.8 mg/dL (0.2-1.0); TOTAL PROTEIN 6.9 g/dL (6.4-8.2)
[2022-01-04 07:22] VITALS: BP 100/69
[2022-01-04] MEDS: ASPIRIN ENTERIC COATED 81 MG TABLET.DR. PO SCH (08:16)
[2022-01-04] MEDS: METOPROLOL TART IMMED RELEASE 25 MG TABLET. PO SCH ×3 (08:16→21:00)
--- NOTE | 2022-01-04 08:57 | PDOC ---
Exam Note: Biju Note: This note is a late entry for 01/03/2022 covers elements not covered in my initial note. Subjective: The patient was seen individually on 01/03/2022, discussed and reviewed the chart with Bill TEIXEIRA. There has been Covid exposure on the unit and the unit has been placed on quarantine as determined by Infectious Disease Department. The patient slept 7 hours previous night. He is doing better. Gait is unsteady. He is on one-on-one status, tries to walk himself. He refused oral medications. Received Zyprexa at 7.20 p.m. He does take a nap in his chair, takes himself to the bathroom, fed himself partially for lunch and supper. Review of Systems: Ambulation impaired, in wheelchair at times. No CV, , pulmonary, eye, ENT system symptoms on review. Reliability poor. Mental Status Exam: Patient is oriented to himself. Insight and judgment, recent and remote memory, attention and concentration, fund of knowledge is poor consistent with his diagnoses. Laboratory Data: Reviewed. Impression: Major neurocognitive disorder, Alzheimer, vascular with delusion, depression, behavioral disturbance. Anxiety disorder unspecified. Impulse control disorder unspecified. Plan: No change from initial note. Assessment: Vital Signs/I&O: Vital Signs Date Time Temp Pulse Resp B/P (MAP) Pulse Ox O2 Delivery O2 Flow Rate FiO2 01/04/22 08:16 73 100/69 01/04/22 06:15 97.7 20 94 Room Air I & O 01/03/22 01/03/22 01/04/22 15:00 23:00 07:00 Intake Total 600 ml 450 ml Balance 600 ml 450 ml Labs: Laboratory Tests Test 01/04/22 06:15 White Blood Count 8.6 x10^3/uL (4.0-11.0) Red Blood Count 5.17 x10^6/uL (4.30-5.70) Hemoglobin 14.6 g/dL (13.0-17.5) Hematocrit 43.2 % (39.0-53.0) Mean Corpuscular Volume 84 fL (79-100) Mean Corpuscular Hemoglobin 28 pg (25-35) Mean Corpuscular Hemoglobin Concent 34 g/dL (31-37) Red Cell Distribution Width 14.3 % (11.5-14.5) Platelet Count 200 x10^3/uL (140-400) Neutrophils (%) (Auto) 62 % (31-73) Lymphocytes (%) (Auto) 21 % (24-48) L Monocytes (%) (Auto) 14 % (0-9) H Eosinophils (%) (Auto) 3 % (0-3) Basophils (%) (Auto) 1 % (0-3) Neutrophils # (Auto) 5.3 x10^3uL (1.8-7.7) Lymphocytes # (Auto) 1.8 x10^3/uL (1.0-4.8) Monocytes # (Auto) 1.2 x10^3/uL (0.0-1.1) H Eosinophils # (Auto) 0.2 x10^3/uL (0.0-0.7) Basophils # (Auto) 0.1 x10^3/uL (0.0-0.2) Sodium Level 137 mmol/L (136-145) Potassium Level 3.1 mmol/L (3.5-5.1) L Chloride Level 102 mmol/L (98-107) Carbon Dioxide Level 26 mmol/L (21-32) Anion Gap 9 (6-14) Blood Urea Nitrogen 19 mg/dL (8-26) Creatinine 1.2 mg/dL (0.7-1.3) Estimated GFR (Cockcroft-Gault) 58.6 BUN/Creatinine Ratio 16 (6-20) Glucose Level 114 mg/dL (70-99) H Calcium Level 8.8 mg/dL (8.5-10.1) Total Bilirubin 0.8 mg/dL (0.2-1.0) Aspartate Amino Transferase (AST) 28 U/L (15-37) Alanine Aminotransferase (ALT) 42 U/L (16-63) Alkaline Phosphatase 118 U/L (46-116) H Total Protein 6.9 g/dL (6.4-8.2) Albumin 3.1 g/dL (3.4-5.0) L Albumin/Globulin Ratio 0.8 (1.0-1.7) L Current Medications: I have reviewed the current psychotropics carefully including drug interactions. Risk benefit ratio favors no change other than as noted in my dictated progress note. 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
[2022-01-04] MEDS: POTASSIUM CHLORIDE 20 MEQ TABLET.ER. PO SCH ×3 (15:30→21:00)
[2022-01-04 16:52] VITALS: BP 127/88
--- NOTE | 2022-01-04 21:58 | PDOC ---
Exam Note: Biju Note: Please also refer to the separate dictated note~for this date of service dictated separately.~Patient seen individually. Discussed the patient with Nursing staff reviewed the chart.~Reviewed interim history and current functioning. Reviewed vital signs,~Labs/ Radiology~and current medications noted below. Continue current treatment with the changes noted in the dictated addendum note Assessment: Vital Signs/I&O: Vital Signs Date Time Temp Pulse Resp B/P (MAP) Pulse Ox O2 Delivery O2 Flow Rate FiO2 01/04/22 16:52 97.8 77 18 127/88 (101) 97 01/04/22 06:15 Room Air I & O 01/03/22 01/03/22 01/04/22 15:00 23:00 07:00 Intake Total 600 ml 450 ml Balance 600 ml 450 ml Labs: Laboratory Tests Test 01/04/22 06:15 White Blood Count 8.6 x10^3/uL (4.0-11.0) Red Blood Count 5.17 x10^6/uL (4.30-5.70) Hemoglobin 14.6 g/dL (13.0-17.5) Hematocrit 43.2 % (39.0-53.0) Mean Corpuscular Volume 84 fL (79-100) Mean Corpuscular Hemoglobin 28 pg (25-35) Mean Corpuscular Hemoglobin Concent 34 g/dL (31-37) Red Cell Distribution Width 14.3 % (11.5-14.5) Platelet Count 200 x10^3/uL (140-400) Neutrophils (%) (Auto) 62 % (31-73) Lymphocytes (%) (Auto) 21 % (24-48) L Monocytes (%) (Auto) 14 % (0-9) H Eosinophils (%) (Auto) 3 % (0-3) Basophils (%) (Auto) 1 % (0-3) Neutrophils # (Auto) 5.3 x10^3uL (1.8-7.7) Lymphocytes # (Auto) 1.8 x10^3/uL (1.0-4.8) Monocytes # (Auto) 1.2 x10^3/uL (0.0-1.1) H Eosinophils # (Auto) 0.2 x10^3/uL (0.0-0.7) Basophils # (Auto) 0.1 x10^3/uL (0.0-0.2) Sodium Level 137 mmol/L (136-145) Potassium Level 3.1 mmol/L (3.5-5.1) L Chloride Level 102 mmol/L (98-107) Carbon Dioxide Level 26 mmol/L (21-32) Anion Gap 9 (6-14) Blood Urea Nitrogen 19 mg/dL (8-26) Creatinine 1.2 mg/dL (0.7-1.3) Estimated GFR (Cockcroft-Gault) 58.6 BUN/Creatinine Ratio 16 (6-20) Glucose Level 114 mg/dL (70-99) H Calcium Level 8.8 mg/dL (8.5-10.1) Total Bilirubin 0.8 mg/dL (0.2-1.0) Aspartate Amino Transferase (AST) 28 U/L (15-37) Alanine Aminotransferase (ALT) 42 U/L (16-63) Alkaline Phosphatase 118 U/L (46-116) H Total Protein 6.9 g/dL (6.4-8.2) Albumin 3.1 g/dL (3.4-5.0) L Albumin/Globulin Ratio 0.8 (1.0-1.7) L Current Medications: Meds: Laboratory Tests Test 01/04/22 06:15 White Blood Count 8.6 x10^3/uL Red Blood Count 5.17 x10^6/uL Hemoglobin 14.6 g/dL Hematocrit 43.2 % Mean Corpuscular Volume 84 fL Mean Corpuscular Hemoglobin 28 pg Mean Corpuscular Hemoglobin Concent 34 g/dL Red Cell Distribution Width 14.3 % Platelet Count 200 x10^3/uL Neutrophils (%) (Auto) 62 % Lymphocytes (%) (Auto) 21 % Monocytes (%) (Auto) 14 % Eosinophils (%) (Auto) 3 % Basophils (%) (Auto) 1 % Neutrophils # (Auto) 5.3 x10^3uL Lymphocytes # (Auto) 1.8 x10^3/uL Monocytes # (Auto) 1.2 x10^3/uL Eosinophils # (Auto) 0.2 x10^3/uL Basophils # (Auto) 0.1 x10^3/uL Sodium Level 137 mmol/L Potassium Level 3.1 mmol/L Chloride Level 102 mmol/L Carbon Dioxide Level 26 mmol/L Anion Gap 9 Blood Urea Nitrogen 19 mg/dL Creatinine 1.2 mg/dL Estimated GFR (Cockcroft-Gault) 58.6 BUN/Creatinine Ratio 16 Glucose Level 114 mg/dL Calcium Level 8.8 mg/dL Total Bilirubin 0.8 mg/dL Aspartate Amino Transf (AST/SGOT) 28 U/L Alanine Aminotransferase (ALT/SGPT) 42 U/L Alkaline Phosphatase 118 U/L Total Protein 6.9 g/dL Albumin 3.1 g/dL Albumin/Globulin Ratio 0.8 Current Medications Medications (Trade) Dose Ordered Sig/Uche Route PRN Reason Start Time Stop Time Status Last Admin Dose Admin Acetaminophen (Tylenol) 325 mg PRN Q6HRS PRN PO MILD PAIN / TEMP > 100.3'F 12/30/21 14:30 Aspirin (Aspirin Enteric Coated) 81 mg DAILY PO 12/31/21 09:00 01/04/22 08:16 Divalproex Sodium (Depakote Sprinkles) 375 mg TID PO 12/30/21 21:00 01/02/22 13:09 DC 01/02/22 08:31 Donepezil HCl (Aricept) 10 mg QHS PO 12/30/21 21:00 01/01/22 20:43 DC 12/30/21 20:16 Levothyroxine Sodium (Synthroid) 25 mcg DAILY06 PO 12/31/21 06:00 12/31/21 11:54 DC 12/31/21 05:46 Magnesium Hydroxide (Milk Of Magnesia) 400 mg PRN Q6HRS PRN PO CONSTIPATION 12/30/21 14:30 12/31/21 12:46 Memantine (Namenda) 10 mg BID PO 12/30/21 21:00 01/01/22 20:43 DC 12/31/21 09:41 Metoprolol Tartrate (Lopressor) 12.5 mg BID PO 12/30/21 21:00 01/03/22 21:01 Trazodone HCl (Desyrel) 25 mg TID PO 12/30/21 21:00 12/31/21 17:59 DC 12/31/21 09:41 Quetiapine Fumarate (SEROquel) 200 mg TID PO 12/30/21 21:00 12/31/21 17:59 DC 12/31/21 09:41 Multi-Ingredient Ointment (Analgesic [place]) 1 char PRN QID PRN TP MUSCLE PAIN 12/30/21 14:30 Al Hydroxide/Mg Hydroxide (Mylanta Plus Xs) 15 ml PRN AFTMEALHC PRN PO DYSPEPSIA 12/30/21 14:30 Dextrose 1,000 ml @ 100 mls/hr Q10H IV 12/31/21 11:45 01/02/22 09:41 DC 01/01/22 23:58 Levothyroxine Sodium (Synthroid) 50 mcg DAILY06 PO 01/01/22 06:00 01/04/22 06:26 Quetiapine Fumarate (SEROquel) 100 mg TID PO 12/31/21 21:00 01/02/22 13:09 DC 01/02/22 08:32 Olanzapine (ZyPREXA ZYDIS) 2.5 mg PRN Q2HR PRN PO ANXIETY / AGITATION 12/31/21 18:00 01/03/22 07:19 Potassium Chloride (Klor-Con) 40 meq BID PO 01/04/22 13:00 Sertraline HCl (Zoloft) 25 mg DAILY PO 01/05/22 09:00 I have reviewed the current psychotropics carefully including drug interactions. Risk benefit ratio favors no change other than as noted in my dictated progress note. 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
[2022-01-05 06:24] VITALS: BP 121/78
[2022-01-05] MEDS: LEVOTHYROXINE 50 MCG TABLET PO SCH (06:28)
[2022-01-05 06:34] LABS: CALCIUM 9.1 mg/dL (8.5-10.1); CREATININE 1.3 mg/dL (0.7-1.3); GFR 53.4; POTASSIUM 3.4 mmol/L (3.5-5.1)
--- NOTE | 2022-01-05 08:35 | PDOC ---
Exam Note: Biju Note: This note is a late entry for 01/04/2022 covers elements not covered in my initial note. Subjective: The patient was seen individually on 01/04/2022, discussed and reviewed the chart with Bill TEIXEIRA. There has been Covid exposure on the unit and the unit has been placed on quarantine as determined by Infectious Disease Department. The patient slept 7-1/4 hours previous night. He remains confused. He ate 50% lunch, nothing for breakfast. Potassium low at 3.1 and was supplemented. We will repeat BMP in the morning. He has been wandering and uncooperative with therapy. Review of Systems: Ambulates with a walker, gait unsteady. He remains on one-on-one status. No CV, , pulmonary, eye, ENT system symptoms on review. Reliability poor. Mental Status Exam: Patient is oriented to himself. Insight and judgment, recent and remote memory, attention and concentration, fund of knowledge is poor consistent with his diagnoses. Laboratory Data: Reviewed. Impression: Major neurocognitive disorder, Alzheimer, vascular with delusion, depression, behavioral disturbance. Anxiety disorder unspecified. Impulse control disorder unspecified. Plan: No change from initial note. Start Zoloft 25 mg a day. We will increase gradually for his mood and anxiety symptoms. Assessment: Vital Signs/I&O: Vital Signs Date Time Temp Pulse Resp B/P (MAP) Pulse Ox O2 Delivery O2 Flow Rate FiO2 01/05/22 06:24 97.6 67 18 121/78 (92) 98 01/04/22 06:15 Room Air I & O 01/04/22 01/04/22 01/05/22 15:00 23:00 07:00 Intake Total 130 ml 240 ml Balance 130 ml 240 ml Labs: Laboratory Tests Test 01/05/22 06:15 Sodium Level 141 mmol/L (136-145) Potassium Level 3.4 mmol/L (3.5-5.1) L Chloride Level 105 mmol/L (98-107) Carbon Dioxide Level 25 mmol/L (21-32) Anion Gap 11 (6-14) Blood Urea Nitrogen 24 mg/dL (8-26) Creatinine 1.3 mg/dL (0.7-1.3) Estimated GFR (Cockcroft-Gault) 53.4 Glucose Level 121 mg/dL (70-99) H Calcium Level 9.1 mg/dL (8.5-10.1) Current Medications: I have reviewed the current psychotropics carefully including drug interactions. Risk benefit ratio favors no change other than as noted in my dictated progress note. 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
[2022-01-05] MEDS: POTASSIUM CHLORIDE 20 MEQ TABLET.ER. PO SCH ×2 (09:00→19:54)
[2022-01-05] MEDS: ASPIRIN ENTERIC COATED 81 MG TABLET.DR. PO SCH (09:00)
[2022-01-05] MEDS: METOPROLOL TART IMMED RELEASE 25 MG TABLET. PO SCH ×2 (09:00→19:55)
[2022-01-05] MEDS: SERTRALINE 25 MG TABLET. PO SCH (09:00)
[2022-01-05 16:47] VITALS: BP 116/68
--- NOTE | 2022-01-05 21:07 | PDOC ---
Exam Note: Biju Note: Please also refer to the separate dictated note~for this date of service dictated separately.~Patient seen individually. Discussed the patient with Nursing staff reviewed the chart.~Reviewed interim history and current functioning. Reviewed vital signs,~Labs/ Radiology~and current medications noted below. Continue current treatment with the changes noted in the dictated addendum note Assessment: Vital Signs/I&O: Vital Signs Date Time Temp Pulse Resp B/P (MAP) Pulse Ox O2 Delivery O2 Flow Rate FiO2 01/05/22 19:55 81 116/68 01/05/22 16:47 98.1 16 98 01/04/22 06:15 Room Air I & O 01/04/22 01/04/22 01/05/22 15:00 23:00 07:00 Intake Total 130 ml 240 ml Balance 130 ml 240 ml Labs: Laboratory Tests Test 01/05/22 06:15 Sodium Level 141 mmol/L (136-145) Potassium Level 3.4 mmol/L (3.5-5.1) L Chloride Level 105 mmol/L (98-107) Carbon Dioxide Level 25 mmol/L (21-32) Anion Gap 11 (6-14) Blood Urea Nitrogen 24 mg/dL (8-26) Creatinine 1.3 mg/dL (0.7-1.3) Estimated GFR (Cockcroft-Gault) 53.4 Glucose Level 121 mg/dL (70-99) H Calcium Level 9.1 mg/dL (8.5-10.1) Current Medications: Meds: Laboratory Tests Test 01/05/22 06:15 Sodium Level 141 mmol/L Potassium Level 3.4 mmol/L Chloride Level 105 mmol/L Carbon Dioxide Level 25 mmol/L Anion Gap 11 Blood Urea Nitrogen 24 mg/dL Creatinine 1.3 mg/dL Estimated GFR (Cockcroft-Gault) 53.4 Glucose Level 121 mg/dL Calcium Level 9.1 mg/dL Current Medications Medications (Trade) Dose Ordered Sig/Uche Route PRN Reason Start Time Stop Time Status Last Admin Dose Admin Acetaminophen (Tylenol) 325 mg PRN Q6HRS PRN PO MILD PAIN / TEMP > 100.3'F 12/30/21 14:30 Aspirin (Aspirin Enteric Coated) 81 mg DAILY PO 12/31/21 09:00 01/05/22 09:00 Divalproex Sodium (Depakote Sprinkles) 375 mg TID PO 12/30/21 21:00 01/02/22 13:09 DC 01/02/22 08:31 Donepezil HCl (Aricept) 10 mg QHS PO 12/30/21 21:00 01/01/22 20:43 DC 12/30/21 20:16 Levothyroxine Sodium (Synthroid) 25 mcg DAILY06 PO 12/31/21 06:00 12/31/21 11:54 DC 12/31/21 05:46 Magnesium Hydroxide (Milk Of Magnesia) 400 mg PRN Q6HRS PRN PO CONSTIPATION 12/30/21 14:30 12/31/21 12:46 Memantine (Namenda) 10 mg BID PO 12/30/21 21:00 01/01/22 20:43 DC 12/31/21 09:41 Metoprolol Tartrate (Lopressor) 12.5 mg BID PO 12/30/21 21:00 01/05/22 19:55 Trazodone HCl (Desyrel) 25 mg TID PO 12/30/21 21:00 12/31/21 17:59 DC 12/31/21 09:41 Quetiapine Fumarate (SEROquel) 200 mg TID PO 12/30/21 21:00 12/31/21 17:59 DC 12/31/21 09:41 Multi-Ingredient Ointment (Analgesic [place]) 1 char PRN QID PRN TP MUSCLE PAIN 12/30/21 14:30 Al Hydroxide/Mg Hydroxide (Mylanta Plus Xs) 15 ml PRN AFTMEALHC PRN PO DYSPEPSIA 12/30/21 14:30 Dextrose 1,000 ml @ 100 mls/hr Q10H IV 12/31/21 11:45 01/02/22 09:41 DC 01/01/22 23:58 Levothyroxine Sodium (Synthroid) 50 mcg DAILY06 PO 01/01/22 06:00 01/05/22 06:28 Quetiapine Fumarate (SEROquel) 100 mg TID PO 12/31/21 21:00 01/02/22 13:09 DC 01/02/22 08:32 Olanzapine (ZyPREXA ZYDIS) 2.5 mg PRN Q2HR PRN PO ANXIETY / AGITATION 12/31/21 18:00 01/05/22 08:41 Potassium Chloride (Klor-Con) 40 meq BID PO 01/04/22 13:00 01/05/22 19:54 Sertraline HCl (Zoloft) 25 mg DAILY PO 01/05/22 09:00 01/05/22 09:00 Current Medications Medications (Trade) Dose Ordered Sig/Uche Route PRN Reason Start Time Stop Time Status Last Admin Dose Admin Sertraline HCl (Zoloft) 25 mg DAILY PO 01/05/22 09:00 01/05/22 09:00 I have reviewed the current psychotropics carefully including drug interactions. Risk benefit ratio favors no change other than as noted in my dictated progress note. 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
[2022-01-06] MEDS: LEVOTHYROXINE 50 MCG TABLET PO SCH ×2 (06:00→06:20)
[2022-01-06 06:34] VITALS: BP 119/77
[2022-01-06] MEDS: ASPIRIN ENTERIC COATED 81 MG TABLET.DR. PO SCH (08:17)
[2022-01-06] MEDS: SERTRALINE 25 MG TABLET. PO SCH (08:17)
[2022-01-06] MEDS: METOPROLOL TART IMMED RELEASE 25 MG TABLET. PO SCH ×3 (08:17→21:00)
[2022-01-06] MEDS: POTASSIUM CHLORIDE 20 MEQ TABLET.ER. PO SCH ×3 (09:00→21:00)
[2022-01-06 16:28] VITALS: BP 134/80
--- NOTE | 2022-01-06 21:50 | PDOC ---
Exam Note: Biju Note: This note is a late entry for 01/05/2022 covers elements not covered in my initial note. Subjective: The patient was seen individually on 01/05/2022, discussed and reviewed the chart with Ellen TEIXEIRA. The patient slept 6-3/4 hours previous night. We reviewed the patients diagnoses, history, current psychotropics. He was lying in bed in his room. Review of Systems: Ambulates with a walker. Gait unsteady. No CV, , pulmonary, eye, ENT system symptoms on review. Reliability poor. He refuses to use walker, staff have to hold him while walking. Mental Status Exam: Patient is oriented to himself. Insight and judgment, recent and remote memory, attention and concentration, fund of knowledge is poor consistent with his diagnoses. Laboratory Data: Reviewed. Impression: Major neurocognitive disorder, Alzheimer, vascular with delusion, depression, behavioral disturbance. Anxiety disorder unspecified. Impulse control disorder unspecified. Plan: No change from initial note. We will adjust psychotropics as clinically indicated. Assessment: Vital Signs/I&O: Vital Signs Date Time Temp Pulse Resp B/P (MAP) Pulse Ox O2 Delivery O2 Flow Rate FiO2 01/06/22 21:00 69 134/80 01/06/22 16:28 97.4 18 94 01/04/22 06:15 Room Air I & O 01/05/22 01/05/22 01/06/22 15:00 23:00 07:00 Intake Total 727 ml 150 ml Balance 727 ml 150 ml Current Medications: I have reviewed the current psychotropics carefully including drug interactions. Risk benefit ratio favors no change other than as noted in my dictated progress note. 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
--- NOTE | 2022-01-06 22:05 | PDOC ---
Exam Note: Biju Note: Please also refer to the separate dictated note~for this date of service dictated separately.~Patient seen individually. Discussed the patient with Nursing staff reviewed the chart.~Reviewed interim history and current functioning. Reviewed vital signs,~Labs/ Radiology~and current medications noted below. Continue current treatment with the changes noted in the dictated addendum note Assessment: Vital Signs/I&O: Vital Signs Date Time Temp Pulse Resp B/P (MAP) Pulse Ox O2 Delivery O2 Flow Rate FiO2 01/06/22 21:00 69 134/80 01/06/22 16:28 97.4 18 94 01/04/22 06:15 Room Air I & O 01/05/22 01/05/22 01/06/22 15:00 23:00 07:00 Intake Total 727 ml 150 ml Balance 727 ml 150 ml Current Medications: Meds: Current Medications Medications (Trade) Dose Ordered Sig/Uche Route PRN Reason Start Time Stop Time Status Last Admin Dose Admin Acetaminophen (Tylenol) 325 mg PRN Q6HRS PRN PO MILD PAIN / TEMP > 100.3'F 12/30/21 14:30 Aspirin (Aspirin Enteric Coated) 81 mg DAILY PO 12/31/21 09:00 01/06/22 08:17 Divalproex Sodium (Depakote Sprinkles) 375 mg TID PO 12/30/21 21:00 01/02/22 13:09 DC 01/02/22 08:31 Donepezil HCl (Aricept) 10 mg QHS PO 12/30/21 21:00 01/01/22 20:43 DC 12/30/21 20:16 Levothyroxine Sodium (Synthroid) 25 mcg DAILY06 PO 12/31/21 06:00 12/31/21 11:54 DC 12/31/21 05:46 Magnesium Hydroxide (Milk Of Magnesia) 400 mg PRN Q6HRS PRN PO CONSTIPATION 12/30/21 14:30 12/31/21 12:46 Memantine (Namenda) 10 mg BID PO 12/30/21 21:00 01/01/22 20:43 DC 12/31/21 09:41 Metoprolol Tartrate (Lopressor) 12.5 mg BID PO 12/30/21 21:00 01/06/22 08:17 Trazodone HCl (Desyrel) 25 mg TID PO 12/30/21 21:00 12/31/21 17:59 DC 12/31/21 09:41 Quetiapine Fumarate (SEROquel) 200 mg TID PO 12/30/21 21:00 12/31/21 17:59 DC 12/31/21 09:41 Multi-Ingredient Ointment (Analgesic [place]) 1 char PRN QID PRN TP MUSCLE PAIN 12/30/21 14:30 Al Hydroxide/Mg Hydroxide (Mylanta Plus Xs) 15 ml PRN AFTMEALHC PRN PO DYSPEPSIA 12/30/21 14:30 Dextrose 1,000 ml @ 100 mls/hr Q10H IV 12/31/21 11:45 01/02/22 09:41 DC 01/01/22 23:58 Levothyroxine Sodium (Synthroid) 50 mcg DAILY06 PO 01/01/22 06:00 01/06/22 06:00 Quetiapine Fumarate (SEROquel) 100 mg TID PO 12/31/21 21:00 01/02/22 13:09 DC 01/02/22 08:32 Olanzapine (ZyPREXA ZYDIS) 2.5 mg PRN Q2HR PRN PO ANXIETY / AGITATION 12/31/21 18:00 01/06/22 03:41 Potassium Chloride (Klor-Con) 40 meq BID PO 01/04/22 13:00 01/05/22 19:54 Sertraline HCl (Zoloft) 25 mg DAILY PO 01/05/22 09:00 01/06/22 08:17 I have reviewed the current psychotropics carefully including drug interactions. Risk benefit ratio favors no change other than as noted in my dictated progress note. 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
[2022-01-07 06:10] VITALS: BP 100/69
[2022-01-07] MEDS: METOPROLOL TART IMMED RELEASE 25 MG TABLET. PO SCH ×2 (08:07→19:32)
[2022-01-07] MEDS: SERTRALINE 25 MG TABLET. PO SCH (08:07)
[2022-01-07] MEDS: ASPIRIN ENTERIC COATED 81 MG TABLET.DR. PO SCH (08:07)
[2022-01-07] MEDS: LEVOTHYROXINE 50 MCG TABLET PO SCH (08:07)
--- NOTE | 2022-01-07 08:43 | PDOC ---
Exam Note: Biju Note: This note is a late entry for 01/06/2022 covers elements not covered in my initial note. Subjective: The patient was seen individually on 01/06/2022, discussed and reviewed the chart with Amie TEIXEIRA. The patient slept 4-1/2 hours previous night. He has been taken off one-on-one status. He is on line of sight, calmer, quiet, encouraged to eat. Review of Systems: Gait unsteady. No CV, , pulmonary, eye, ENT system symptoms on review. Reliability poor. Mental Status Exam: Patient is oriented to himself. Insight and judgment, recent and remote memory, attention and concentration, fund of knowledge is poor consistent with his diagnoses. Laboratory Data: Reviewed. Impression: Major neurocognitive disorder, Alzheimer, vascular with delusion, depression, behavioral disturbance. Anxiety disorder unspecified. Impulse control disorder unspecified. Plan: No change from initial note. We will adjust psychotropics as clinically indicated. Dr. Up will cover for me from 01/07/2022 until 01/24/2022. Assessment: Vital Signs/I&O: Vital Signs Date Time Temp Pulse Resp B/P (MAP) Pulse Ox O2 Delivery O2 Flow Rate FiO2 01/07/22 08:07 86 100/69 01/07/22 06:10 97.0 18 97 01/04/22 06:15 Room Air I & O 01/06/22 01/06/22 01/07/22 15:00 23:00 07:00 Intake Total 50 ml 240 ml Balance 50 ml 240 ml Current Medications: I have reviewed the current psychotropics carefully including drug interactions. Risk benefit ratio favors no change other than as noted in my dictated progress note. 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
[2022-01-07] MEDS: POTASSIUM CHLORIDE 20 MEQ TABLET.ER. PO SCH ×2 (09:00→19:36)
[2022-01-07 15:53] VITALS: BP 118/82
[2022-01-07] MEDS: MEMANTINE 10 MG TABLET. PO SCH (19:31)
[2022-01-07 21:46] LABS: CALCIUM 9.1 mg/dL (8.5-10.1); CREATININE 1.2 mg/dL (0.7-1.3); GFR 58.6; POTASSIUM 4.1 mmol/L (3.5-5.1)
[2022-01-07 21:56] LABS: HEMATOCRIT 38.7 % (39.0-53.0); RED BLOOD COUNT 4.54 x10^6/uL (4.30-5.70); RED CELL DISTRIBUTION WIDTH 14.6 % (11.5-14.5); WHITE BLOOD COUNT 8.2 x10^3/uL (4.0-11.0)
[2022-01-08] MEDS: LEVOTHYROXINE 50 MCG TABLET PO SCH (05:12)
[2022-01-08 06:23] VITALS: BP 91/62
[2022-01-08] MEDS: POTASSIUM CHLORIDE 20 MEQ TABLET.ER. PO SCH ×3 (07:22→20:50)
[2022-01-08] MEDS: ASPIRIN ENTERIC COATED 81 MG TABLET.DR. PO SCH ×2 (09:00→09:14)
[2022-01-08] MEDS: METOPROLOL TART IMMED RELEASE 25 MG TABLET. PO SCH ×3 (09:00→20:51)
[2022-01-08] MEDS: MEMANTINE 10 MG TABLET. PO SCH ×4 (09:00→20:51)
[2022-01-08] MEDS: SERTRALINE 25 MG TABLET. PO SCH ×2 (09:00→09:13)
[2022-01-08 09:18] VITALS: BP 93/65
--- NOTE | 2022-01-08 11:57 | PN ---
DATE: 01/07/2022 SUBJECTIVE: The patient was seen today, met with the staff, chart reviewed and also covering for Dr. Latif. Staff reports increased behavior problems, physically aggressive towards the staff, grabbing one of the staff's arm. The patient also confused. The patient also having difficulty with his executive functioning. The patient needs to be redirected. The patient also exhibiting poor impulse control and low frustration tolerance. OBSERVATION: VITAL SIGNS: Temperature 97.0, blood pressure 100/69, pulse 86, respirations 18, O2 sat 97%. GENERAL: Slept about ____ hours last night. The patient's appetite is fair. CURRENT MEDICATIONS: The patient's current medications include Namenda 10 mg twice a day, Zoloft 25 mg daily, olanzapine 2.5 mg q. 2 hours p.r.n. LABORATORY DATA: The patient's lab reviewed. PLAN: Continue with the treatment. LENGTH OF STAY: 7-[address]: Josh TID: [id number]
[2022-01-08 19:41] VITALS: BP 112/77
[2022-01-08] MEDS ORDERED: BISACODYL 10 MG SUPP.RECT PR PRN (22:00)
--- NOTE | 2022-01-09 00:29 | PN ---
DATE: 01/08/2022 SUBJECTIVE: The patient was seen today, met with the staff. Chart reviewed and also covering for Dr. Latif. Staff reports increased confusion, disorganized thinking and difficult to redirect and also refusing medications at times and he responded well to Zyprexa. OBSERVATION: VITAL SIGNS: Temperature 98.2, blood pressure 91/62, pulse 110, respirations 18, O2 sat 92%. GENERAL: Slept about 6 hours last night. The patient's appetite is fair. CURRENT MEDICATIONS: Include Namenda 10 mg twice a day, Zoloft 25 mg daily and olanzapine 2.5 mg every 2 hours p.r.n. The patient is not having any side effects to the medications. LABORATORY DATA: The patient's lab reviewed. ASSESSMENT: 1. Major neurocognitive disorder, Alzheimer's and vascular with the delusion, depression and behavioral disturbances. 2. Anxiety disorder, unspecified. 3. Impulse control disorder, unspecified. PLAN: Continue with the treatment. LENGTH OF STAY: Five to seven days. SHERYL/KRISTINA DR: Josh TID: [id number]
[2022-01-09] MEDS: LEVOTHYROXINE 50 MCG TABLET PO SCH ×2 (05:37→05:42)
[2022-01-09 06:04] VITALS: BP 105/68
[2022-01-09] MEDS: POTASSIUM CHLORIDE 20 MEQ TABLET.ER. PO SCH ×2 (12:19→19:38)
[2022-01-09] MEDS: ASPIRIN ENTERIC COATED 81 MG TABLET.DR. PO SCH (12:19)
[2022-01-09] MEDS: SERTRALINE 25 MG TABLET. PO SCH (12:19)
[2022-01-09] MEDS: MEMANTINE 10 MG TABLET. PO SCH ×2 (12:19→19:38)
[2022-01-09] MEDS: METOPROLOL TART IMMED RELEASE 25 MG TABLET. PO SCH ×2 (12:20→19:38)
[2022-01-09] MEDS: DOXYCYCLINE HYCLATE 100 MG TABLET PO SCH ×2 (14:45→19:37)
[2022-01-09 16:04] VITALS: BP 100/72
[2022-01-10] MEDS: LEVOTHYROXINE 50 MCG TABLET PO SCH (06:00)
[2022-01-10 06:22] VITALS: BP 119/79
[2022-01-10] MEDS: POTASSIUM CHLORIDE 20 MEQ TABLET.ER. PO SCH ×2 (08:32→19:36)
[2022-01-10] MEDS: DOXYCYCLINE HYCLATE 100 MG TABLET PO SCH ×2 (08:32→19:36)
[2022-01-10] MEDS: METOPROLOL TART IMMED RELEASE 25 MG TABLET. PO SCH ×2 (08:32→19:37)
[2022-01-10] MEDS: MEMANTINE 10 MG TABLET. PO SCH ×2 (08:33→19:36)
[2022-01-10] MEDS: ASPIRIN ENTERIC COATED 81 MG TABLET.DR. PO SCH (08:33)
[2022-01-10] MEDS: SERTRALINE 25 MG TABLET. PO SCH (08:33)
--- NOTE | 2022-01-10 09:58 | PN ---
DATE: 01/09/2022 SUBJECTIVE: The patient was seen today and met with the staff, chart reviewed and also covering for Dr. Latif. The patient's behavior fluctuates, still confused, wanders, significant problems with his cognition. The patient also shows impaired executive functioning. The patient also disorganized with his thinking. The patient is difficult to redirect, also resisted to medications. Also, discussed with the treatment review meeting today regarding the discharge plans. OBSERVATION: VITAL SIGNS: Temperature 97.5, blood pressure 105/68, pulse 66, respirations 18, O2 sat 98%. GENERAL: Slept about 6 hours last night. LABORATORY DATA: The patient's lab reviewed. CURRENT MEDICATIONS: The patient's current medications include Namenda 10 mg twice a day, Zoloft 25 mg daily, and olanzapine 2.5 mg q. 2 hours p.r.n. The patient is not having any side effects to the medications. ASSESSMENT: 1. Major neurocognitive disorder, Alzheimer's and vascular with the delusions, depression and behavioral disturbances. 2. Anxiety disorder, unspecified. 3. Impulse control disorder, unspecified. PLAN: To continue with treatment. LENGTH OF STAY: Five to seven days. SHERYL/PEYTON/ALEJA DR: Josh TID: [id number] [facility] Angel
[2022-01-10 16:13] VITALS: BP 105/71
[2022-01-10 19:20] VITALS: BP 125/80
[2022-01-11 05:33] VITALS: BP 104/67
[2022-01-11] MEDS: LEVOTHYROXINE 50 MCG TABLET PO SCH (05:46)
--- NOTE | 2022-01-11 06:52 | PN ---
DATE: 01/10/2022 SUBJECTIVE: The patient was seen today, met with the staff. Chart reviewed and covering for Dr. Latif. Staff reports less confusion, resisted to care. OBSERVATION: VITAL SIGNS: Temperature 97.7, blood pressure 105/71, pulse 69, respirations 16, O2 sat 97%. GENERAL: Slept 6 hours last night. CURRENT MEDICATIONS: Namenda 10 mg twice a day, Zoloft 25 mg daily and olanzapine 2.5 mg q. 2 hours p.r.n. The patient is not having any side effects to medications. LABORATORY DATA: The patient's lab reviewed. ASSESSMENT: 1. Major neurocognitive disorder, Alzheimer's and vascular with delusions, depression and behavioral disturbances. 2. Anxiety disorder, unspecified. 3. Impulse control disorder, unspecified. PLAN: To continue with treatment. LENGTH OF STAY: Five to seven days. ROSARIO DR: Josh TID: [id number] [facility] Angel
[2022-01-11] MEDS: METOPROLOL TART IMMED RELEASE 25 MG TABLET. PO SCH ×3 (08:43→21:00)
[2022-01-11] MEDS: DOXYCYCLINE HYCLATE 100 MG TABLET PO SCH ×2 (08:43→20:45)
[2022-01-11] MEDS: MEMANTINE 10 MG TABLET. PO SCH ×3 (08:44→21:00)
[2022-01-11] MEDS: POTASSIUM CHLORIDE 20 MEQ TABLET.ER. PO SCH ×3 (08:44→21:00)
[2022-01-11] MEDS: SERTRALINE 25 MG TABLET. PO SCH (08:44)
[2022-01-11] MEDS: ASPIRIN ENTERIC COATED 81 MG TABLET.DR. PO SCH (08:44)
[2022-01-11 16:14] VITALS: BP 107/77
[2022-01-11] MEDS: LACTOBACILLUS RHAMNOSUS GG 1 CAPSULE. PO SCH ×2 (20:42→21:00)
--- NOTE | 2022-01-12 04:03 | PN ---
DATE: 01/11/2022 SUBJECTIVE: The patient was seen today, met with the staff. Chart reviewed. I am covering for Dr. Latif. Staff reports medication compliant, tend to withdrawal to his room, less confused, but resistive to care. OBSERVATION: VITAL SIGNS: Temperature 97.5, blood pressure 104/67, pulse 67, respirations 16, O2 sat 98%. GENERAL: Slept about 7 hours last night. The patient is not having any other physical complaints. CURRENT MEDICATIONS: The patient's current medications include Namenda 10 mg twice a day, Zoloft 25 mg daily and olanzapine 2.5 mg q. 2 hours p.r.n. The patient denies of any side effects to medications. LABORATORY DATA: The patient's lab reviewed. ASSESSMENT: 1. Major neurocognitive disorder, Alzheimer's and vascular with delusion, depression and behavioral disturbances. 2. Anxiety disorder, unspecified. 3. Impulse control disorder, unspecified. PLAN: To continue treatment. LENGTH OF STAY: Five days. CRISTHIAN DR: Josh TID: [id number]
[2022-01-12] MEDS: LEVOTHYROXINE 50 MCG TABLET PO SCH (05:48)
[2022-01-12 05:55] VITALS: BP 143/86
[2022-01-12] MEDS: SERTRALINE 25 MG TABLET. PO SCH (08:38)
[2022-01-12] MEDS: DOXYCYCLINE HYCLATE 100 MG TABLET PO SCH ×2 (08:39→19:44)
[2022-01-12] MEDS: ASPIRIN ENTERIC COATED 81 MG TABLET.DR. PO SCH (08:39)
[2022-01-12] MEDS: METOPROLOL TART IMMED RELEASE 25 MG TABLET. PO SCH ×2 (08:39→19:42)
[2022-01-12] MEDS: POTASSIUM CHLORIDE 20 MEQ TABLET.ER. PO SCH ×2 (08:39→19:41)
[2022-01-12] MEDS: LACTOBACILLUS RHAMNOSUS GG 1 CAPSULE. PO SCH ×2 (08:39→19:41)
[2022-01-12] MEDS: MEMANTINE 10 MG TABLET. PO SCH ×2 (08:39→19:44)
[2022-01-12 16:15] VITALS: BP 101/63
--- NOTE | 2022-01-13 05:22 | PN ---
DATE: 01/12/2022 SUBJECTIVE: The patient was seen today, met with the staff, chart reviewed, and covering for Dr. Latif. Staff reports he is increasingly confused, restless, pacing, difficult to redirect, tend to wander around the unit. OBSERVATION: VITAL SIGNS: Temperature 98.4, blood pressure 101/63, pulse 62, respirations 16, O2 sat 99%. GENERAL: The patient's appetite is fair. The patient slept about 6 hours last night. CURRENT MEDICATIONS: Namenda 10 mg twice a day, Zoloft 25 mg daily and olanzapine 2.5 mg q. 2 hours p.r.n. He is not exhibiting any side effects to medications. LABORATORY DATA: Reviewed. ASSESSMENT: 1. Major neurocognitive disorder, Alzheimer's and vascular with delusions, depression and behavioral disturbances. 2. Anxiety disorder, unspecified. 3. Impulse control disorder, unspecified. PLAN: To continue with the treatment. LENGTH OF STAY: 5 days. SHERYL/SARAH/SRINIVAS DR: SHERYL/darlyn TID: [id number]
[2022-01-13] MEDS: LEVOTHYROXINE 50 MCG TABLET PO SCH (05:49)
[2022-01-13 06:09] VITALS: BP 138/79
[2022-01-13] MEDS: METOPROLOL TART IMMED RELEASE 25 MG TABLET. PO SCH ×2 (07:54→20:38)
[2022-01-13] MEDS: MEMANTINE 10 MG TABLET. PO SCH ×3 (07:54→21:00)
[2022-01-13] MEDS: ASPIRIN ENTERIC COATED 81 MG TABLET.DR. PO SCH (07:54)
[2022-01-13] MEDS: SERTRALINE 25 MG TABLET. PO SCH (07:55)
[2022-01-13] MEDS: DOXYCYCLINE HYCLATE 100 MG TABLET PO SCH ×3 (07:55→21:00)
[2022-01-13] MEDS: LACTOBACILLUS RHAMNOSUS GG 1 CAPSULE. PO SCH ×3 (07:55→21:00)
[2022-01-13] MEDS: POTASSIUM CHLORIDE 20 MEQ TABLET.ER. PO SCH ×3 (07:55→21:00)
[2022-01-13 15:42] VITALS: BP 106/67
[2022-01-14] MEDS: LEVOTHYROXINE 50 MCG TABLET PO SCH (05:09)
[2022-01-14 06:14] VITALS: BP 151/67
[2022-01-14] MEDS: LACTOBACILLUS RHAMNOSUS GG 1 CAPSULE. PO SCH ×3 (07:55→21:00)
[2022-01-14] MEDS: POTASSIUM CHLORIDE 20 MEQ TABLET.ER. PO SCH ×3 (07:55→21:00)
[2022-01-14] MEDS: ASPIRIN ENTERIC COATED 81 MG TABLET.DR. PO SCH (07:55)
[2022-01-14] MEDS: MEMANTINE 10 MG TABLET. PO SCH ×3 (07:55→21:00)
[2022-01-14] MEDS: DOXYCYCLINE HYCLATE 100 MG TABLET PO SCH ×3 (07:55→21:00)
[2022-01-14] MEDS: SERTRALINE 25 MG TABLET. PO SCH (07:55)
[2022-01-14] MEDS: METOPROLOL TART IMMED RELEASE 25 MG TABLET. PO SCH ×3 (07:56→21:00)
[2022-01-14 10:07] LABS: BASO # 0.1 x10^3/uL (0.0-0.2); BASO % 1 % (0-3); EOS # 0.2 x10^3/uL (0.0-0.7); EOS % 3 % (0-3); HEMATOCRIT 39.2 % (39.0-53.0); LYMPH # 1.4 x10^3/uL (1.0-4.8); LYMPH % 21 % (24-48); MEAN CORPUSCULAR HEMOGLOBIN 29 pg (25-35); MEAN CORPUSCULAR HGB CONC 33 g/dL (31-37); MEAN CORPUSCULAR VOLUME 86 fL (79-100); MONO # 0.5 x10^3/uL (0.0-1.1); MONO % 7 % (0-9); NEUT # 4.6 x10^3uL (1.8-7.7); NEUT % 68 % (31-73); PLATELET COUNT 181 x10^3/uL (140-400); RED BLOOD COUNT 4.55 x10^6/uL (4.30-5.70); RED CELL DISTRIBUTION WIDTH 15.2 % (11.5-14.5); WHITE BLOOD COUNT 6.7 x10^3/uL (4.0-11.0)
[2022-01-14 10:24] LABS: ALBUMIN 3.2 g/dL (3.4-5.0); ALBUMIN/GLOBULIN RATIO 0.9 (1.0-1.7); CALCIUM 9.1 mg/dL (8.5-10.1); CREATININE 1.1 mg/dL (0.7-1.3); GFR 64.7; POTASSIUM 3.7 mmol/L (3.5-5.1); TOTAL BILIRUBIN 0.9 mg/dL (0.2-1.0); TOTAL PROTEIN 6.9 g/dL (6.4-8.2)
[2022-01-14 15:44] VITALS: BP 109/72
[2022-01-15 05:59] VITALS: BP 105/71
[2022-01-15] MEDS: DOXYCYCLINE HYCLATE 100 MG TABLET PO SCH ×4 (09:11→22:50)
[2022-01-15] MEDS: POTASSIUM CHLORIDE 20 MEQ TABLET.ER. PO SCH ×4 (09:11→22:49)
[2022-01-15] MEDS: LACTOBACILLUS RHAMNOSUS GG 1 CAPSULE. PO SCH ×4 (09:11→22:49)
[2022-01-15] MEDS: SERTRALINE 25 MG TABLET. PO SCH ×2 (09:11→17:42)
[2022-01-15] MEDS: ASPIRIN ENTERIC COATED 81 MG TABLET.DR. PO SCH ×2 (09:11→11:30)
[2022-01-15] MEDS: METOPROLOL TART IMMED RELEASE 25 MG TABLET. PO SCH ×4 (09:11→22:49)
[2022-01-15] MEDS: MEMANTINE 10 MG TABLET. PO SCH ×4 (09:12→22:50)
[2022-01-15] MEDS: LEVOTHYROXINE 50 MCG TABLET PO SCH ×2 (09:12→11:30)
--- NOTE | 2022-01-15 12:35 | PN ---
DATE: 01/13/2022 This is the late entry for the service date 01/13/2022. SUBJECTIVE: The patient was seen today, met with the staff, chart reviewed. I am covering for Dr. Latif. The patient continues to be confused, withdrawn, difficult to redirect, significant cognitive deficits and tend to wander a lot and also unsteady on his feet. OBSERVATION: VITAL SIGNS: Temperature 98.6, blood pressure 106/67, pulse 60, respirations 18, O2 sat 100%. GENERAL: The patient's appetite decreased and slept about 6 hours last night. CURRENT MEDICATIONS: Namenda 10 mg twice a day, Zoloft 25 mg daily and olanzapine 2.5 mg q. 2 hours p.r.n. He is not exhibiting any side effects to medications. LABORATORY DATA: Reviewed. ASSESSMENT: 1. Major neurocognitive disorder, Alzheimer's and vascular with delusions, depression and behavioral disturbances. 2. Anxiety disorder, unspecified. 3. Impulse control disorder, unspecified. PLAN: To continue with the treatment. LENGTH OF STAY: Five days. DAVIDE/YEFRI DR: Josh TID: [id number]
--- NOTE | 2022-01-15 12:57 | PN ---
DATE: 01/14/2022 SUBJECTIVE: The patient was seen today, met with the staff, chart reviewed, and covering for Dr. Latif. Staff reports increased confusion, wandering, door checking and needing supervision, tend to wander off. OBSERVATION: VITAL SIGNS: Temperature 97.2, blood pressure 151/67, pulse 85, respirations 18, O2 sat 97%. GENERAL: Slept about 7 hours last night. The patient's appetite is fair. CURRENT MEDICATIONS: Namenda 10 mg twice a day, Zoloft 25 mg daily and olanzapine 2.5 mg q. 2 hours p.r.n. The patient is not showing any side effects to medications. LABORATORY DATA: The patient's lab reviewed. ASSESSMENT: 1. Major neurocognitive disorder, Alzheimer's and vascular with the delusions, depression and behavioral disturbances. 2. Anxiety disorder, unspecified. 3. Impulse control disorder, unspecified. PLAN: To continue with the treatment. LENGTH OF STAY: Five days. BEVERLY DR: Josh TID: [id number]
[2022-01-15 16:08] VITALS: BP 118/75
--- NOTE | 2022-01-16 00:14 | PN ---
DATE: 01/15/2022 SUBJECTIVE: The patient was seen today, met with the staff. Chart was reviewed and covering for Dr. Latif. Staff reports he is still confused, tend to wander a lot, refusing nighttime medications. The patient mostly noncommunicative, indifferent to surroundings. OBSERVATION: VITAL SIGNS: Temperature 97.5, blood pressure 105/71, pulse 65, respirations 18, O2 sat 98%. GENERAL: Slept about 7 hours last night. The patient's appetite decreased. CURRENT MEDICATIONS: Namenda 10 mg daily twice a day, Zoloft 25 mg daily and olanzapine 2.5 mg q. 2 hours p.r.n. The patient is not having any side effects to medications. LABORATORY DATA: Reviewed. ASSESSMENT: 1. Major neurocognitive disorder, Alzheimer's and vascular with delusions, depression and behavioral disturbances. 2. Anxiety disorder, unspecified. 3. Impulse control disorder, unspecified. PLAN: To continue treatment. LENGTH OF STAY: Five days. DAVIDE DR: Josh TID: [id number]
[2022-01-16] MEDS: LEVOTHYROXINE 50 MCG TABLET PO SCH ×2 (05:26→06:01)
[2022-01-16 06:14] VITALS: BP 102/69
[2022-01-16] MEDS: POTASSIUM CHLORIDE 20 MEQ TABLET.ER. PO SCH ×2 (09:00→20:52)
[2022-01-16] MEDS: METOPROLOL TART IMMED RELEASE 25 MG TABLET. PO SCH ×2 (09:00→20:52)
[2022-01-16] MEDS: ASPIRIN ENTERIC COATED 81 MG TABLET.DR. PO SCH (09:00)
[2022-01-16] MEDS: DOXYCYCLINE HYCLATE 100 MG TABLET PO SCH ×2 (12:36→20:53)
[2022-01-16] MEDS: SERTRALINE 25 MG TABLET. PO SCH (12:36)
[2022-01-16] MEDS: MEMANTINE 10 MG TABLET. PO SCH ×2 (12:36→20:52)
[2022-01-16] MEDS: LACTOBACILLUS RHAMNOSUS GG 1 CAPSULE. PO SCH ×2 (12:38→20:52)
[2022-01-16 16:08] VITALS: BP 109/63
[2022-01-17 06:09] VITALS: BP 115/73
[2022-01-17] MEDS: LEVOTHYROXINE 50 MCG TABLET PO SCH (06:26)
--- NOTE | 2022-01-17 06:42 | PN ---
DATE: 01/16/2022 SUBJECTIVE: The patient was seen today, met with the staff, chart reviewed, and covering for Dr. Latif. Staff reports increased confusion, wandering, refusing to eat or drink at times, refusing his medications, and the patient wanders into others' rooms. The patient has significant problems with his memory and also his executive functioning. OBSERVATION: VITAL SIGNS: Temperature 97.8, blood pressure 109/63, pulse 78, respirations 16, O2 sat 95%. GENERAL: Slept about 7 hours last night. LABORATORY DATA: The patient's lab reviewed. ASSESSMENT: 1. Major neurocognitive disorder, Alzheimer's, and vascular delusions, depression and behavioral disturbances. 2. Anxiety disorder, unspecified. 3. Impulse control disorder, unspecified. PLAN: To continue with the treatment. LENGTH OF STAY: [address]: Josh TID: [id number]
[2022-01-17] MEDS: ASPIRIN CHEWABLE 81 MG TABLET. PO SCH ×2 (07:56→08:00)
[2022-01-17] MEDS: DOXYCYCLINE HYCLATE 100 MG TABLET PO SCH ×4 (07:56→21:34)
[2022-01-17] MEDS: SERTRALINE 25 MG TABLET. PO SCH ×2 (07:57→09:00)
[2022-01-17] MEDS: METOPROLOL TART IMMED RELEASE 25 MG TABLET. PO SCH ×3 (07:57→19:58)
[2022-01-17] MEDS: MEMANTINE 10 MG TABLET. PO SCH ×4 (07:57→21:34)
[2022-01-17] MEDS: POTASSIUM CHLORIDE 20 MEQ TABLET.ER. PO SCH ×3 (09:00→21:34)
[2022-01-17] MEDS: LACTOBACILLUS RHAMNOSUS GG 1 CAPSULE. PO SCH ×3 (09:00→21:34)
[2022-01-17 12:17] VITALS: BP 109/73
[2022-01-17 16:15] VITALS: BP 95/60
[2022-01-18] MEDS: LEVOTHYROXINE 50 MCG TABLET PO SCH ×2 (06:13→20:21)
[2022-01-18 06:26] VITALS: BP 136/93
[2022-01-18] MEDS: ASPIRIN CHEWABLE 81 MG TABLET. PO SCH (08:00)
[2022-01-18] MEDS: DOXYCYCLINE HYCLATE 100 MG TABLET PO SCH (09:00)
[2022-01-18] MEDS: SERTRALINE 25 MG TABLET. PO SCH (09:00)
[2022-01-18] MEDS: POTASSIUM CHLORIDE 20 MEQ TABLET.ER. PO SCH ×2 (09:00→20:22)
[2022-01-18] MEDS: MEMANTINE 10 MG TABLET. PO SCH ×2 (09:00→20:22)
[2022-01-18] MEDS: METOPROLOL TART IMMED RELEASE 25 MG TABLET. PO SCH ×2 (09:00→20:21)
[2022-01-18] MEDS: LACTOBACILLUS RHAMNOSUS GG 1 CAPSULE. PO SCH ×2 (09:00→20:22)
[2022-01-18 11:51] VITALS: BP 122/82
--- NOTE | 2022-01-18 14:09 | PN ---
DATE: 01/17/2022 SUBJECTIVE: The patient was seen today, met with the staff. Chart was reviewed and covering for Dr. Latif. Staff reports increased confusion, disorganized thinking, decreased appetite, refusing medications, also significant decline in his executive functioning. OBSERVATION: VITAL SIGNS: Temperature 97.1, blood pressure 95/60, pulse 70, respirations 18, O2 sat 94%. Slept about 9 hours last night. CURRENT MEDICATIONS: Namenda 10 mg twice a day, Zoloft 25 mg daily, olanzapine 2.5 mg q. 2 hours p.r.n. The patient is not having any side effects of the medications. LABORATORY DATA: The patient's lab reviewed. ASSESSMENT: 1. Major neurocognitive disorder, Alzheimer's, vascular with delusions, depression and behavioral disturbances. 2. Anxiety disorder, unspecified. 3. Impulse control disorder, unspecified. PLAN: To continue treatment. LENGTH OF STAY: Five days. POLA DR: Josh TID: [id number]
[2022-01-18 16:24] VITALS: BP 132/76
[2022-01-19] MEDS: LEVOTHYROXINE 50 MCG TABLET PO SCH (05:36)
[2022-01-19 06:23] VITALS: BP 105/63
[2022-01-19] MEDS ORDERED: DIPHENOXYLATE/ATROPINE TABLET. PO PRN (06:30)
[2022-01-19] MEDS: ASPIRIN CHEWABLE 81 MG TABLET. PO SCH (08:00)
[2022-01-19] MEDS: MEMANTINE 10 MG TABLET. PO SCH ×2 (09:00→20:14)
[2022-01-19] MEDS: LACTOBACILLUS RHAMNOSUS GG 1 CAPSULE. PO SCH ×2 (09:00→20:14)
[2022-01-19] MEDS: SERTRALINE 25 MG TABLET. PO SCH (09:00)
[2022-01-19] MEDS: METOPROLOL TART IMMED RELEASE 25 MG TABLET. PO SCH ×2 (09:00→20:14)
[2022-01-19] MEDS: POTASSIUM CHLORIDE 20 MEQ TABLET.ER. PO SCH ×2 (09:00→20:14)
[2022-01-19 16:36] VITALS: BP 118/65
[2022-01-19 19:48] VITALS: BP 115/65
[2022-01-20] MEDS: LEVOTHYROXINE 50 MCG TABLET PO SCH (05:14)
[2022-01-20 05:50] VITALS: BP 113/75
[2022-01-20] MEDS: ASPIRIN CHEWABLE 81 MG TABLET. PO SCH (08:00)
[2022-01-20] MEDS: MEMANTINE 10 MG TABLET. PO SCH ×2 (09:00→20:24)
[2022-01-20] MEDS: POTASSIUM CHLORIDE 20 MEQ TABLET.ER. PO SCH ×2 (09:00→20:25)
[2022-01-20] MEDS: METOPROLOL TART IMMED RELEASE 25 MG TABLET. PO SCH ×2 (09:00→20:24)
[2022-01-20] MEDS: SERTRALINE 25 MG TABLET. PO SCH (09:00)
[2022-01-20] MEDS: LACTOBACILLUS RHAMNOSUS GG 1 CAPSULE. PO SCH ×2 (09:00→20:25)
[2022-01-20 15:36] VITALS: BP 124/75
[2022-01-21] MEDS: LEVOTHYROXINE 50 MCG TABLET PO SCH (05:22)
[2022-01-21 05:52] VITALS: BP 110/62
[2022-01-21 07:42] LABS: BASO % 1 % (0-3); EOS # 0.3 x10^3/uL (0.0-0.7); EOS % 6 % (0-3); HEMOGLOBIN 13.1 g/dL (13.0-17.5); LYMPH # 1.6 x10^3/uL (1.0-4.8); LYMPH % 29 % (24-48); MEAN CORPUSCULAR HEMOGLOBIN 29 pg (25-35); MEAN CORPUSCULAR HGB CONC 34 g/dL (31-37); MEAN CORPUSCULAR VOLUME 86 fL (79-100); MONO # 0.5 x10^3/uL (0.0-1.1); MONO % 9 % (0-9); NEUT % 55 % (31-73); PLATELET COUNT 166 x10^3/uL (140-400); RED BLOOD COUNT 4.52 x10^6/uL (4.30-5.70); RED CELL DISTRIBUTION WIDTH 15.6 % (11.5-14.5); WHITE BLOOD COUNT 5.5 x10^3/uL (4.0-11.0)
[2022-01-21 07:56] LABS: ALBUMIN 3.1 g/dL (3.4-5.0); ALBUMIN/GLOBULIN RATIO 0.9 (1.0-1.7); CALCIUM 8.9 mg/dL (8.5-10.1); GFR 72.3; POTASSIUM 3.6 mmol/L (3.5-5.1); TOTAL BILIRUBIN 1.2 mg/dL (0.2-1.0); TOTAL PROTEIN 6.6 g/dL (6.4-8.2)
[2022-01-21] MEDS: ASPIRIN CHEWABLE 81 MG TABLET. PO SCH (08:00)
[2022-01-21 08:14] VITALS: BP 117/79
[2022-01-21] MEDS: METOPROLOL TART IMMED RELEASE 25 MG TABLET. PO SCH ×2 (09:00→19:57)
[2022-01-21] MEDS: SERTRALINE 25 MG TABLET. PO SCH (09:00)
[2022-01-21] MEDS: MEMANTINE 10 MG TABLET. PO SCH ×2 (09:00→19:56)
[2022-01-21] MEDS: POTASSIUM CHLORIDE 20 MEQ TABLET.ER. PO SCH ×2 (09:00→19:56)
[2022-01-21] MEDS: LACTOBACILLUS RHAMNOSUS GG 1 CAPSULE. PO SCH ×2 (09:00→19:57)
--- NOTE | 2022-01-21 11:15 | PN ---
DATE: 01/20/2022 SUBJECTIVE: The patient was seen today, met with the staff, chart reviewed, and covering for Dr. Latif. Staff reports increased confusion, disorganized thinking, wandering into other's room, difficult to redirect and also tend to get agitated at times. OBSERVATION: VITAL SIGNS: Temperature 97.7, blood pressure 124/75, pulse 101, respirations 18, O2 sat 96%. GENERAL: Slept about 8 hours last night. Staff reports no falls. CURRENT MEDICATIONS: Namenda 10 mg twice a day, Zoloft 25 mg daily, olanzapine 2.5 mg q. 2 hours p.r.n. He is not having any side effects. LABORATORY DATA: The patient's lab reviewed. ASSESSMENT: 1. Major neurocognitive disorder, Alzheimer's, vascular with the delusions, depression and behavioral disturbances. 2. Anxiety disorder, unspecified. 3. Impulse control disorder, unspecified. PLAN: To continue with the treatment. LENGTH OF STAY: Five days. SHERYL/SARAH/MARCIA DR: Josh TID: [id number]
[2022-01-21 16:11] VITALS: BP 104/66
[2022-01-21 19:23] VITALS: BP 91/66
--- NOTE | 2022-01-22 02:39 | PN ---
DATE: 01/21/2022 SUBJECTIVE: The patient was seen today, met with the staff. Chart was reviewed. I am covering for Dr. aLtif. Staff reports increased confusion, social withdrawal disorder, disorganized thinking, not eating. OBSERVATION: VITAL SIGNS: Stable. GENERAL: The patient is not sleeping well, 1-2 hours at night and also refusing to eat. CURRENT MEDICATIONS: Namenda 10 mg twice a day, Zoloft 25 mg daily, olanzapine 2.5 mg q.2 hours p.r.n. The patient is not having any side effects of the medication. The patient is not having any falls. LABORATORY DATA: The patient's lab reviewed. ASSESSMENT: 1. Major neurocognitive disorder, Alzheimer's, vascular with the delusions, depression and behavioral disturbances. 2. Anxiety disorder, unspecified. 3. Impulse control disorder, unspecified. PLAN: To continue with the treatment. LENGTH OF STAY: Five days. GENA DR: Josh TID: [id number]
[2022-01-22] MEDS: LEVOTHYROXINE 50 MCG TABLET PO SCH ×2 (05:02→05:07)
[2022-01-22] MEDS: ASPIRIN CHEWABLE 81 MG TABLET. PO SCH (08:00)
[2022-01-22 08:26] VITALS: BP 110/89
[2022-01-22] MEDS: LACTOBACILLUS RHAMNOSUS GG 1 CAPSULE. PO SCH ×2 (09:00→21:00)
[2022-01-22] MEDS: POTASSIUM CHLORIDE 20 MEQ TABLET.ER. PO SCH ×2 (09:00→21:00)
[2022-01-22] MEDS: METOPROLOL TART IMMED RELEASE 25 MG TABLET. PO SCH ×2 (09:00→21:00)
[2022-01-22] MEDS: MEMANTINE 10 MG TABLET. PO SCH ×2 (09:00→21:00)
[2022-01-22] MEDS: SERTRALINE 25 MG TABLET. PO SCH (09:00)
[2022-01-22 16:07] VITALS: BP 101/68
[2022-01-22 19:45] VITALS: BP 112/54
--- NOTE | 2022-01-23 01:48 | PN ---
DATE: 01/22/2022 SUBJECTIVE: The patient was seen today, met with the staff. Chart was reviewed and covering for Dr. Latif. The patient currently weighs 72.2 kilograms and the last weight was 77.9 kilograms. Apparently, the patient has lost 5.7 kg in 6 days. The patient has been refusing his medications. Also, refusing lunch. Tend to wander, difficult to redirect. The patient was seen by the dietitian. OBSERVATION: VITAL SIGNS: The patient refused. GENERAL: Slept about 4 hours last night. CURRENT MEDICATIONS: Namenda 10 mg twice a day, Zoloft 25 mg daily, olanzapine 2.5 mg q. 2 hours p.r.n. The patient is not having any side effects. The patient did not have any falls. LABORATORY DATA: The patient's lab reviewed. There was no significant change except for total bilirubin of 1.2, albumin 3.1. ASSESSMENT: 1. Major neurocognitive disorder, Alzheimer's, vascular with delusions, depression, behavioral disturbances. 2. Anxiety disorder, unspecified. 3. Impulse control disorder, unspecified. PLAN: To continue with the treatment. LENGTH OF STAY: Five days. LYNETTE DR: Josh TID: [id number]
[2022-01-23] MEDS: LEVOTHYROXINE 50 MCG TABLET PO SCH (05:18)
[2022-01-23 05:38] VITALS: BP 121/80
[2022-01-23] MEDS: ASPIRIN CHEWABLE 81 MG TABLET. PO SCH (07:47)
[2022-01-23] MEDS: POTASSIUM CHLORIDE 20 MEQ TABLET.ER. PO SCH ×3 (07:48→21:00)
[2022-01-23] MEDS: SERTRALINE 25 MG TABLET. PO SCH (07:48)
[2022-01-23] MEDS: METOPROLOL TART IMMED RELEASE 25 MG TABLET. PO SCH ×3 (07:49→21:00)
[2022-01-23] MEDS: MEMANTINE 10 MG TABLET. PO SCH ×3 (07:49→21:00)
[2022-01-23] MEDS: LACTOBACILLUS RHAMNOSUS GG 1 CAPSULE. PO SCH ×3 (07:49→21:00)
[2022-01-23 16:14] VITALS: BP 116/73
--- NOTE | 2022-01-24 00:50 | PN ---
DATE: 01/23/2022 SUBJECTIVE: The patient was seen today, met with the staff. Chart was reviewed and covering for Dr. Latif. The patient's behavior remains the same. Increased confusion, wandering, but compliant with the medications. The patient is not able to communicate. Staff reports no falls. OBSERVATION: VITAL SIGNS: Temperature 97.0, blood pressure 116/73, blood pressure 75, respirations 16, O2 sat 98%. GENERAL: Slept about 8 hours last night. The patient's appetite decreased. CURRENT MEDICATIONS: Namenda 10 mg twice a day, Zoloft 25 mg daily, olanzapine 2.5 mg q. 2 hours p.r.n. He is not having any side effects to medications. LABORATORY DATA: The patient's lab reviewed. ASSESSMENT: 1. Major neurocognitive disorder, Alzheimer's, vascular with delusions, depression and behavioral disturbances. 2. Anxiety disorder, unspecified. 3. Impulse control disorder, unspecified. PLAN: To continue with the treatment. LENGTH OF STAY: Five days. CECILLE DR: Josh TID: [id number]
[2022-01-24 05:39] VITALS: BP 114/73
[2022-01-24] MEDS: LEVOTHYROXINE 50 MCG TABLET PO SCH (06:00)
[2022-01-24] MEDS: METOPROLOL TART IMMED RELEASE 25 MG TABLET. PO SCH ×2 (09:00→20:19)
[2022-01-24] MEDS: LACTOBACILLUS RHAMNOSUS GG 1 CAPSULE. PO SCH ×2 (09:14→20:17)
[2022-01-24] MEDS: SERTRALINE 25 MG TABLET. PO SCH (09:14)
[2022-01-24] MEDS: ASPIRIN CHEWABLE 81 MG TABLET. PO SCH (09:14)
[2022-01-24] MEDS: MEMANTINE 10 MG TABLET. PO SCH (09:14)
[2022-01-24] MEDS: POTASSIUM CHLORIDE 20 MEQ TABLET.ER. PO SCH ×2 (09:14→20:18)
[2022-01-24 16:10] VITALS: BP 111/79
[2022-01-24 20:19] VITALS: BP 111/79
== END 2022-01-25 | DRG 57 ==
LOC: ER 09:47 → GEROPSY 13:45
PROVIDERS: ADMIT Psychiatry & Neurology Psychiatry; ATTEND Psychiatry & Neurology Psychiatry
DX: G30.9 Alzheimer's disease, unspecified (principal); F01.51 Vascular dementia, unspecified severity, with behavioral disturbance; E87.1 Hypo-osmolality and hyponatremia; F02.81 Dementia in other diseases classified elsewhere, unspecified severity, with behavioral disturbance; Z20.822 Contact with and (suspected) exposure to COVID-19; Z66 Do not resuscitate; E03.9 Hypothyroidism, unspecified; E11.9 Type 2 diabetes mellitus without complications; E78.5 Hyperlipidemia, unspecified; E86.0 Dehydration; F20.9 Schizophrenia, unspecified; F32.A Depression, unspecified; F43.10 Post-traumatic stress disorder, unspecified; F63.9 Impulse disorder, unspecified; G89.29 Other chronic pain; I10 Essential (primary) hypertension; K21.9 Gastro-esophageal reflux disease without esophagitis; K59.09 Other constipation; N40.1 Benign prostatic hyperplasia with lower urinary tract symptoms; R33.8 Other retention of urine; F10.20 Alcohol dependence, uncomplicated; K59.00 Constipation, unspecified; Z91.83 Wandering in diseases classified elsewhere; Z88.0 Allergy status to penicillin; Z88.8 Allergy status to other drugs, medicaments and biological substances; Z79.899 Other long term (current) drug therapy; N40.0 Benign prostatic hyperplasia without lower urinary tract symptoms; Z88.2 Allergy status to sulfonamides
CPT/HCPCS: 36415; 80048; 80053; 80061; 80164; 80307; 80329; 81001; 82306; 83036; 83540; 83550; 83735; 84436; 84443; 84480; 85025; 85027; 85379; 86592; 87426; 93005; G0480; P9612; U0003; 97116; 97530; 99285-25